=== PATIENT | male | born 1960 | race Caucasian/White ===

== ENCOUNTER 2019-11-03 14:52 | Inpatient (IN) | payer MEDICARE, OTHER ==
[~2019-11-03] VITALS: Ht 172.7 cm; Wt 101.2 kg
--- NOTE | 2019-11-03 15:22 | NUR ---
PT AMBULATORY TO ER BED 14 C/O GENERALIZED WEAKNESS, DIFFUSE ABDOMIAL PAIN W/ NAUSEA AND VOMITING BLOOD AND NOTED BLOOD IN STOOL. PT DENIES ANY ALCOHOL INTAKE. GOWNED AND PLACED ON MONITOR. VSS. AWAITING MD MARTÍNEZ.
--- NOTE | 2019-11-03 15:45 | NUR ---
DR MARTINEZ AT BEDSIDE FOR EVAL.
[2019-11-03] MEDS ORDERED: METOCLOPRAMIDE HCL 10 MG/2 ML VIAL IV ONE (16:00)
[2019-11-03] MEDS ORDERED: PANTOPRAZOLE 80 MG in IV NS 0.9% 500 ML IV ONE (16:00)
[2019-11-03] MEDS ORDERED: PANTOPRAZOLE 80 MG in IV NS 0.9% 100 ML IV ONE (16:00)
[2019-11-03] MEDS ORDERED: IV NS 0.9% 1,000 ML BAG IV ONE (16:00)
[2019-11-03] MEDS ORDERED: METOCLOPRAMIDE HCL 10 MG/2 ML VIAL ONE (16:07)
--- NOTE | 2019-11-03 16:20 | NUR ---
IV LINE STARTED BLOOD DRAWN AND SENT TO LAB.
[2019-11-03 16:29] LABS: BASOPHILS # (AUTO) 0.1 /CMM (0.0-0.2); BASOPHILS % (AUTO) 0.5 % (0.0-2.0); EOSINOPHILS % (AUTO) 0.3 % (0.0-6.0); HEMATOCRIT 25 % (39-51); HEMOGLOBIN 8.2 g/dL (13.5-17.5); LYMPHOCYTES # (AUTO) 1.5 /CMM (0.8-4.8); LYMPHOCYTES % (AUTO) 10.5 % (20.0-44.0); MEAN CORPUSCULAR HGB CONC 33 g/dl (31.0-36.0); MEAN CORPUSCULAR VOLUME 101 fL (80-96); MONOCYTES % (AUTO) 7.5 % (2.0-12.0); NEUTROPHILS # (AUTO) 11.3 /CMM (1.8-8.9); NEUTROPHILS % (AUTO) 81.2 % (43.0-81.0); PLATELET COUNT (AUTO) 230 /CMM (150-450); RED BLOOD CELL COUNT(AUTO) 2.46 MIL/uL (4.5-6.0); WHITE BLOOD COUNT (AUTO) 13.9 K/uL (4.3-11.0)
[2019-11-03] MEDS ORDERED: PANT40TA2 PO (16:32)
[2019-11-03] MEDS ORDERED: TIOT18CA3 IH (16:32)
[2019-11-03] MEDS ORDERED: IPRA4AER INH (16:32)
[2019-11-03] MEDS ORDERED: CHOL400C8 PO (16:32)
[2019-11-03] MEDS ORDERED: VARE1TAB PO (16:32)
[2019-11-03] MEDS ORDERED: TRIA15CR3 TP (16:32)
[2019-11-03] MEDS ORDERED: HYDR50TA3 PO (16:32)
[2019-11-03] MEDS ORDERED: RISP0.2515 PO (16:32)
[2019-11-03] MEDS ORDERED: GUAI600T53 PO (16:32)
[2019-11-03] MEDS ORDERED: ALBU18HF2 IH (16:32)
[2019-11-03] MEDS ORDERED: LEVA15HF4 IH (16:32)
[2019-11-03] MEDS ORDERED: LISI-603 PO (16:32)
[2019-11-03] MEDS ORDERED: FLUT16SP (16:32)
[2019-11-03] MEDS ORDERED: PRAV40TA3 PO (16:32)
[2019-11-03] MEDS ORDERED: AMLO10TA4 PO (16:32)
[2019-11-03] MEDS ORDERED: ACET-2605 PO (16:32)
[2019-11-03] MEDS ORDERED: CALC500T13 PO (16:32)
[2019-11-03 16:53] LABS: CALCIUM, SERUM 8.4 mg/dL (8.5-10.1); CREATININE 1.3 mg/dL (0.6-1.3)
[2019-11-03] MEDS ORDERED: IOHEXOL-300 100 ML VIAL IV ONE (16:57)
[2019-11-03] MEDS ORDERED: IV NS 0.9% 250 ML IV ONE (16:57)
[2019-11-03] MEDS ORDERED: CT SWABBABLE VALVE TRANS SET 1 EA INFUS.SET MC ONE (16:57)
[2019-11-03 17:08] LABS: ALBUMIN 2.7 g/dL (3.4-5.0); BILIRUBIN,DIRECT 0.6 mg/dL (0.0-0.2); BILIRUBIN,TOTAL 1.3 mg/dL (0.2-1.0); TOTAL PROTEIN, SERUM 6.6 g/dL (6.4-8.2)
[2019-11-03] MEDS ORDERED: MAG HYDROX/AL HYDROX/SIMETH 30 ML UDC PO PRN (21:30)
[2019-11-03] MEDS ORDERED: ZOLPIDEM TARTRATE 5 MG TABLET PO PRN (21:30)
[2019-11-03] MEDS ORDERED: ACETAMINOPHEN 325 MG TABLET PO PRN (21:30)
[2019-11-03] MEDS ORDERED: ONDANSETRON HCL/PF 4 MG/2 ML VIAL IVP PRN (21:30)
[2019-11-03] MEDS ORDERED: Z GUARD REMEDY 2 OZ OINT TP PRN (21:30)
[2019-11-03] MEDS ORDERED: MAGNESIUM HYDROXIDE 30 ML UDC PO PRN (21:30)
--- NOTE | 2019-11-03 21:58 | NUR ---
CALLED IN REPORT TO MONICA ARGUETA
[2019-11-03] MEDS ORDERED: LEVALBUTEROL TARTRATE IH PRN (22:30)
--- NOTE | 2019-11-03 22:30 | NUR ---
PT TAKEN TO ROOM 306-2
[2019-11-03] MEDS: IV NS 0.9% 1,000 ML IV PRN (22:37)
--- NOTE | 2019-11-03 22:40 | NUR ---
CONVENTIONAL MACHINISTREAL ESTATE INVESTMENT ANALYST NOTES PATIENT RECEIVED FROM ER ACCOMPANIED BY ER STAFF. PATIENT A/O X 4, STABLE ON RA WITH BREATHING EVEN AND UNLABORED, NO SOB NOTED. NO SIGNS OF ACUTE DISTRESS. NO COMPLAINTS OF PAIN OR DISCOMFORT AT THE MOMENT. VSS TAKEN. ABLE TO AMBULATE ON OWN, STABLE. TELE MONITORS PLACED ON PT SHOWING SINUS TACHY. IV LOCATED ON L FA #18. PATIENT ORIENTED TO ROOM AND STAFF. ALL BELONGINGS ACCOUNTED FOR. HOME MEDICATIONS COLLECTED. SAFETY PRECAUTIONS IN PLACE WITH BED IN LOWEST POSITION, CALL LIGHT WITHIN REACH, BREAKS ON, SIDE RAILS UP. WILL CONTINUE TO MONITOR THROUGHOUT THE SHIFT.
[2019-11-03 23:00] VITALS: BP 132/67
--- NOTE | 2019-11-03 23:30 | NUR ---
PAINT ROLLER COVERMAKER NOTES PATIENT SEEN BY MANAGER SERVICE DESK RICHARDSON. PATIENT NPO, BUT ALLOWED ICE CHIPS PER MANAGER SERVICE DESK.
[2019-11-04] VITALS (11 sets, daily range): BP systolic 98–132; BP diastolic 47–67
[2019-11-04] MEDS ORDERED: ZOSYN IVPB 4.5 G in IV D5W 50ml IV ONE ×2 (01:00→06:00)
[2019-11-04] MEDS ORDERED: PIPERACILLIN /TAZOBACTAM 2.25 G VIAL IV ONE (05:01)
[2019-11-04] MEDS ORDERED: PIPERACILLIN /TAZOBACTAM 4.5 G in IV D5W 50 ML IV SCH (06:00)
--- NOTE | 2019-11-04 06:42 | NUR ---
COOK MESS OPENING NOTES PATIENT CURRENTLY RESTING IN BED A/O X 4. STABLE ON RA WITH BREATHING EVEN AND UNLABORED, NO SOB NOTED. NO SIGNS OF ACUTE DISTRESS. NO COMPLAINTS OF PAIN OR DISCOMFORT AT THE MOMENT. TELE MONITOR READING ST AT 101. PATIENT REMAINED NPO THROUGHOUT THE NIGHT, EXCEPT FOR ICE CHIPS. IV LOCATED ON L FA #18 RUNNING NS @75 ML/HR. SAFETY PRECAUTIONS IN PLACE WITH BED IN LOWEST POSITION, CALL LIGHT WITHIN REACH, BREAKS ON, SIDE RAILS UP. ALL NEEDS ATTENDED TO, PATIENT KEPT CLEAN AND DRY. WILL ENDORSE TO ONCOMING SHIFT ABOUT VINCE.
--- NOTE | 2019-11-04 08:00 | NUR ---
FLIGHT SOFTWARE TEST ENGINEER OPENING NOTES PATIENT IN BED A/O X 4. STABLE ON RA WITH BREATHING EVEN AND UNLABORED, NO SOB NOTED. NO SIGNS OF ACUTE DISTRESS. NO COMPLAINTS OF PAIN OR DISCOMFORT AT THE MOMENT. TELE MONITOR READING SR AT 99. PATIENT REMAINED NPO THROUGHOUT THE NIGHT, EXCEPT FOR ICE CHIPS. IV LOCATED ON L FA #18 RUNNING NS @75 ML/HR. SAFETY PRECAUTIONS IN PLACE WITH BED IN LOWEST POSITION, CALL LIGHT WITHIN REACH, BREAKS ON, SIDE RAILS UP. NEEDS ATTENDED TO, PATIENT KEPT CLEAN AND DRY.AMBULATES ALONG THE HALLWAY WITH STEADY GAIT.WITH BRP.PT HASN'T MADE BM.FOR STOOL OB TO COLLECT.
[2019-11-04 08:41] LABS: ALBUMIN 2.5 g/dL (3.4-5.0); CALCIUM, SERUM 7.9 mg/dL (8.5-10.1); CREATININE 1.2 mg/dL (0.6-1.3); MAGNESIUM 1.9 mg/dL (1.8-2.4); POTASSIUM 3.6 mmol/L (3.5-5.1)
[2019-11-04] MEDS: AMLODIPINE BESYLATE 10 MG TABLET PO SCH (08:55)
[2019-11-04] MEDS: PANTOPRAZOLE 40 MG VIAL IV SCH (08:55)
[2019-11-04] MEDS: HYDROCHLOROTHIAZIDE 25 MG TABLET PO SCH (08:55)
[2019-11-04] MEDS: LISINOPRIL (20MG) 20 MG TABLET PO SCH (08:56)
[2019-11-04] MEDS: CHOLECALCIFEROL (VITAMIN D 3) 400 UNIT TABLET PO SCH (08:56)
[2019-11-04] MEDS: risperiDONE 0.25 MG TABLET PO SCH ×2 (08:56→16:52)
[2019-11-04] MEDS ORDERED: HYDROCHLOROTHIAZIDE 50 MG TABLET PO SCH (09:00)
[2019-11-04] MEDS ORDERED: Medication Not On Formulary EA (Ipratropium/Albuterol Sulfate (Combivent Respimat 20-100 INH SCH (09:00)
[2019-11-04 09:53] LABS: BASOPHILS % (AUTO) 0.4 % (0.0-2.0); EOSINOPHILS % (AUTO) 1.7 % (0.0-6.0); LYMPHOCYTES % (AUTO) 16.9 % (20.0-44.0); MEAN CORPUSCULAR HGB CONC 33 g/dl (31.0-36.0); MEAN CORPUSCULAR VOLUME 100 fL (80-96); MONOCYTES # (AUTO) 1.3 /CMM (0.1-1.30); MONOCYTES % (AUTO) 10.5 % (2.0-12.0); NEUTROPHILS # (AUTO) 8.6 /CMM (1.8-8.9); NEUTROPHILS % (AUTO) 70.5 % (43.0-81.0); PLATELET COUNT (AUTO) 121 /CMM (150-450); WHITE BLOOD COUNT (AUTO) 12.1 K/uL (4.3-11.0)
[2019-11-04 09:55] LABS: RED BLOOD CELL COUNT(AUTO) 1.88 MIL/uL (4.5-6.0)
[2019-11-04 10:01] LABS: HEMOGLOBIN 6.3 g/dL (13.5-17.5)
[2019-11-04 10:02] LABS: HEMATOCRIT 19 % (39-51)
[2019-11-04 10:27] LABS: BAND % (MANUAL) 1 % (0.0-5.0); LYMPHOCYTES % (MANUAL) 21 % (16-48); MONOCYTES % (MANUAL) 6 % (0-11.0); NEUTROPHILS % (MANUAL) 72 (42-76)
--- NOTE | 2019-11-04 12:11 | NUR ---
STARTED INFUSING FIRST UNIT PRBC WITH STABLE V/S.AFEBRILE AND WILL MONITOR FOR ANY ADVERSE REACTIONS.
--- NOTE | 2019-11-04 12:11 | NUR ---
PT IS FOR STAT BLOOD TRANSFUSION OF 2 UNITS PRBC. HGB HCT IS 6.3/. HELD ZOSYN IV ATB DUE AT 12NN.NOTIFIED PHARMACY.
--- NOTE | 2019-11-04 12:27 | NUR ---
INFUSING FIRST UNIT OF PRBC WITH STABLE V/S AND PT DENIES ANY DISTRESS/DISCOMFORT.WILL CONTINUE TO MONITOR FOR ANY ADVERSE REACTIONS.
[2019-11-04] MEDS ORDERED: Sodium Phosphate 15 MMOL in IV NS 0.9% 245 ML IV SCH (13:00)
--- NOTE | 2019-11-04 14:09 | NUR ---
NOTIFIED DR CERNA THAT PT CAN'T PROVIDE HIS HOME MED CHANTIX AND PT SMOKES 1-7 STICKS A DAY AND SOMETIMES NOT AT ALL PER PT.NOTIFIED DR CERNA WHO ORDERED NICOTINE 14 MG PATCH TD INSTEAD.
[2019-11-04] MEDS: NICOTINE PATCH (14MG) 14 MG PATCH.TD24 TD SCH (17:43)
--- NOTE | 2019-11-04 18:45 | NUR ---
completed TRANSFUSING 2ND UNIT OF PRBC WITH STABLE V/S.WILL [id number] TO MONITOR FOR ANY ADVERSE REACTIONS.NO A/R NOTED.
--- NOTE | 2019-11-04 19:05 | NUR ---
RN medsurg opening notes Received Pt from morning nurse. Pt is resting in bed comfortably. Pt is alert and orientedX4. Pt just had 2 units PRBC transfusion. Respiration is normal in room air. No S/S of distress noted. IV sites at LFA# 18 is clean, intact, and patent. Pt status is NPO. Safety precautions is maintained. Bed at low position, brakes locked, side rails upX2 and call light is within reach. Will continue to monitor.
--- NOTE | 2019-11-04 19:12 | NUR ---
RN medsursydnee notes Spoke with Gerardo, pharmacy that blood transfusion is completed. Gerardo stated to infuse zosyn that is schedule at 2000 and sodium phospate IV after zosyn. Morning nurse is aware. Will continue to monitor.
[2019-11-04] MEDS: PIPERACILLIN /TAZOBACTAM 3.375 G in IV D5W 100 ML IV SCH (19:28)
[2019-11-04] MEDS: ATORVASTATIN 10 MG TABLET PO SCH (22:00)
[2019-11-05] MEDS: IV NS 0.9% 1,000 ML IV PRN (03:12)
[2019-11-05] MEDS: PIPERACILLIN /TAZOBACTAM 3.375 G in IV D5W 100 ML IV SCH ×3 (03:55→19:48)
--- NOTE | 2019-11-05 06:50 | NUR ---
RN medsurg closing notes Pt is sleeping in bed comfortably. Pt is alert and orientedX4. Respiration is normal in room air. No S/S of distress noted. IV sites at LFA# 18 is clean, intact, and infusing well NS@ 75ml/hr. Pt is in stable condition. Routine meds were given as ordered. Pt status still NPO. Kept Pt clean, dry and comfortable. Safety precautions is maintained. Bed at low position, brakes locked, side rails upX2 and call light is within reach. Will endorse to morning nurse for VINCE.
[2019-11-05 07:07] LABS: BASOPHILS % (AUTO) 0.4 % (0.0-2.0); HEMATOCRIT 24 % (39-51); HEMOGLOBIN 8.2 g/dL (13.5-17.5); LYMPHOCYTES # (AUTO) 1.9 /CMM (0.8-4.8); LYMPHOCYTES % (AUTO) 21.6 % (20.0-44.0); MEAN CORPUSCULAR HGB CONC 35 g/dl (31.0-36.0); MEAN CORPUSCULAR VOLUME 99 fL (80-96); MONOCYTES # (AUTO) 0.9 /CMM (0.1-1.30); MONOCYTES % (AUTO) 10.7 % (2.0-12.0); NEUTROPHILS # (AUTO) 5.5 /CMM (1.8-8.9); NEUTROPHILS % (AUTO) 63.3 % (43.0-81.0); PLATELET COUNT (AUTO) 108 /CMM (150-450); RED BLOOD CELL COUNT(AUTO) 2.42 MIL/uL (4.5-6.0); WHITE BLOOD COUNT (AUTO) 8.7 K/uL (4.3-11.0)
--- NOTE | 2019-11-05 07:30 | NUR ---
MS/RN Opening note Patient received from night clerk. A/O X4, vital signs stable, denies any pain or discomfort at this time. IV fluids infusing at 75ml/hr, no signs of any infiltration seen. Safety measures in place, call light within reach, will continue to monitor and ensure safety.
[2019-11-05 07:37] LABS: CALCIUM, SERUM 7.7 mg/dL (8.5-10.1); CREATININE 1.1 mg/dL (0.6-1.3); MAGNESIUM 1.9 mg/dL (1.8-2.4); PHOSPHORUS 3.3 mg/dL (2.5-4.9); POTASSIUM 3.8 mmol/L (3.5-5.1)
[2019-11-05 08:00] VITALS: BP 123/64
[2019-11-05] MEDS: PANTOPRAZOLE 40 MG VIAL IV SCH (08:19)
[2019-11-05] MEDS: NICOTINE PATCH (14MG) 14 MG PATCH.TD24 TD SCH (08:19)
[2019-11-05] MEDS: LISINOPRIL (20MG) 20 MG TABLET PO SCH (08:20)
[2019-11-05] MEDS: AMLODIPINE BESYLATE 10 MG TABLET PO SCH (08:20)
[2019-11-05] MEDS: risperiDONE 0.25 MG TABLET PO SCH ×2 (08:20→16:26)
[2019-11-05] MEDS: CHOLECALCIFEROL (VITAMIN D 3) 400 UNIT TABLET PO SCH (08:20)
[2019-11-05] MEDS: HYDROCHLOROTHIAZIDE 25 MG TABLET PO SCH (08:20)
--- NOTE | 2019-11-05 10:00 | NUR ---
MS/RN Labs Morning labs reviewed: -H&H 8.08/29 -Plts 108
--- NOTE | 2019-11-05 12:00 | NUR ---
MS/RN IVAB IVAB hung as ordered, no reaction noted.
--- NOTE | 2019-11-05 15:45 | NUR ---
MS/RN S/B Gerardo Lopez Seen by Gerardo Lopez - start diet, some concerns clot on the gastric ulcer will be displaced if started on soft diet.
[2019-11-05 16:00] VITALS: BP 130/64
--- NOTE | 2019-11-05 17:22 | NUR ---
MS/RN Diet Tolerating clear liquids, no nausea or vomiting. Will advance diet to full liquids for breakfast tomorrow.
--- NOTE | 2019-11-05 18:10 | NUR ---
MS/RN End note Patient remains in stable condition, no signs of any active bleeding. H&H stable, tolerating clear liquid diet. Will endorse to shift leader.
--- NOTE | 2019-11-05 19:19 | NUR ---
MS RN NOTES PATIENT RECEIVED IN BED RESTING COMFORTABLY. ALERT AND ORIENTED X 4. ON ROOM AIR, NO SIGNS OF SOB, RESPIRATORY DISTRESS AT THIS TIME, WITH EVEN NON-LABORED BREATHING. PATIENT IV ACCESS INTACT AND PATENT. SKIN WARM AND DRY TO TOUCH. SAFETY PRECAUTIONS IN PLACE WITH BED LOCKED, BED IN THE LOWEST POSITION, BILATERAL SIDE RAILS UP, AND CALL LIGHT WITHIN EASY REACH OF THE PATIENT. WILL CONTINUE TO MONITOR PATIENT.
[2019-11-05] MEDS: ALBUTEROL FS 2.5 MG/0.5 ML VIAL.NEB NEB SCH (19:30)
[2019-11-05] MEDS: IPRATROPIUM NEB FS 0.5 MG/2.5 ML AMPUL.NEB IH SCH (19:30)
[2019-11-05 20:00] VITALS: BP 124/62
[2019-11-05] MEDS: ATORVASTATIN 10 MG TABLET PO SCH (21:52)
[2019-11-05] MEDS: ALBUTEROL FS 2.5 MG/3 ML VIAL.NEB NEB PRN (23:55)
[2019-11-06] MEDS: IPRATROPIUM NEB FS 0.5 MG/2.5 ML AMPUL.NEB IH SCH ×4 (01:55→20:05)
[2019-11-06] MEDS: ALBUTEROL FS 2.5 MG/3 ML VIAL.NEB NEB PRN ×2 (01:55→01:58)
[2019-11-06] MEDS: ALBUTEROL FS 2.5 MG/0.5 ML VIAL.NEB NEB SCH ×4 (01:59→20:05)
[2019-11-06] MEDS: PIPERACILLIN /TAZOBACTAM 3.375 G in IV D5W 100 ML IV SCH ×3 (03:35→19:50)
--- NOTE | 2019-11-06 06:13 | NUR ---
MS RN NOTES PATIENT IN BED SLEEP AT THIS TIME. EASILY AWAKEN BY NAME AND LIGHT TOUCH. PATIENT ON ROOM AIR. NO SIGNS OF SOB OR RESPIRATORY DISTRESS, WITH EVEN NON-LABORED BREATHING. DENIES ANY PAIN OR DISCOMFORT AT THIS TIME. PATIENT DENIES NAUSEA. IV ACCESS INTACT AND PATENT. SKIN KEPT CLEAN AND DRY. MET ALL OF PATIENT'S NEEDS. SAFETY PRECAUTIONS IN PLACE WITH BED IN THE LOWEST POSITION, BILATERAL SIDE RAILS UP, BED LOCKED, AND CALL LIGHT WITHIN EASY REACH OF PATIENT. WILL ENDORSE PLAN OF CARE TO UPCOMING DAYSHIFT NURSE.
[2019-11-06 06:32] LABS: BASOPHILS % (AUTO) 0.6 % (0.0-2.0); EOSINOPHILS % (AUTO) 4.9 % (0.0-6.0); HEMATOCRIT 23 % (39-51); HEMOGLOBIN 7.9 g/dL (13.5-17.5); LYMPHOCYTES # (AUTO) 1.5 /CMM (0.8-4.8); LYMPHOCYTES % (AUTO) 22.5 % (20.0-44.0); MEAN CORPUSCULAR HGB CONC 34 g/dl (31.0-36.0); MEAN CORPUSCULAR VOLUME 100 fL (80-96); MONOCYTES # (AUTO) 0.8 /CMM (0.1-1.30); MONOCYTES % (AUTO) 12.2 % (2.0-12.0); NEUTROPHILS # (AUTO) 4.1 /CMM (1.8-8.9); NEUTROPHILS % (AUTO) 59.8 % (43.0-81.0); PLATELET COUNT (AUTO) 107 /CMM (150-450); RED BLOOD CELL COUNT(AUTO) 2.33 MIL/uL (4.5-6.0); WHITE BLOOD COUNT (AUTO) 6.8 K/uL (4.3-11.0)
[2019-11-06 06:50] LABS: CALCIUM, SERUM 7.5 mg/dL (8.5-10.1); CREATININE 1.1 mg/dL (0.6-1.3); MAGNESIUM 1.8 mg/dL (1.8-2.4); PHOSPHORUS 3.8 mg/dL (2.5-4.9); POTASSIUM 3.6 mmol/L (3.5-5.1)
--- NOTE | 2019-11-06 07:20 | NUR ---
MS RN OPENING NOTES RECEIVED PT IN BED, AWAKE, A/O X4. PT TOLERATING RA, WITH NO CUTE RESPIRATORY DISTRESS NOTED. PT DENIES ANY PAIN OR DISCOMFORT AT THIS TIME. BUT PT VERBALIZED ABOUT BEING DISCHARGED TODAY BECAUSE HE FEELS A LOT BETTER, RN TO FOLLOW UP WITH HOSPITALIST. IVF NS AT 75ML/HR TO LEFT HAND G18, INTACT AND FLUID INFUSING WELL. PT KEPT COMFORTABLE AT THIS TIME. CALL LIGHT KEPT WITHIN REACH. PT'S BED IN LOWEST, LOCKED POSITION WITH SRX2. WILL CONTINUE PLAN OF CARE.
--- NOTE | 2019-11-06 07:40 | NUR ---
MS RN NOTES RECEIVED CALL FROM DR. NICOLE AND ORDERED TO PREPARE PT FOR EGD AT 10. MD AWARE PT WAS ON FULL LIQUID DIET AT THIS TIME AND ADVISED JUST TO TELL PT NOT TO TAKE ANYTHING FROM THIS TIME AND KEEP NPO UNTIL HE COMES TO DO EGD. RN TO INFORM PT.
--- NOTE | 2019-11-06 07:52 | NUR ---
MS RN NOTES PT INFORMED WITH DR. NICOLE'S PLAN. PT WILL COMPLY WITH NPO AT THIS TIME UNTIL HE TALKS TO THE MD. PT NOT PREFERS TO SIGN ANY CONSENTS AT THIS TIME. HE WANTS TO TALK WITH THE DOCTOR FIRST BEFORE SIGNING. WILL CONTINUE TO MONITOR.
[2019-11-06 08:00] VITALS: BP_SYST 105; BP_SYST 127; BP_DIAS 71
[2019-11-06] MEDS: PANTOPRAZOLE 40 MG VIAL IV SCH (08:29)
[2019-11-06] MEDS: HYDROCHLOROTHIAZIDE 25 MG TABLET PO SCH (09:00)
[2019-11-06] MEDS: risperiDONE 0.25 MG TABLET PO SCH ×2 (09:00→16:58)
[2019-11-06] MEDS: AMLODIPINE BESYLATE 10 MG TABLET PO SCH (09:00)
[2019-11-06] MEDS: CHOLECALCIFEROL (VITAMIN D 3) 400 UNIT TABLET PO SCH (09:00)
[2019-11-06] MEDS: LISINOPRIL (20MG) 20 MG TABLET PO SCH (09:00)
[2019-11-06] MEDS ORDERED: ANESTHESIA TRAY IN PYXIS 1 EA TRAY MC ONE (10:08)
--- NOTE | 2019-11-06 10:28 | NUR ---
MS RN NOTES PT WHEELED DOWN TO OR WITH 2 NURSES VIA BED. PT AWAKE, STABLE VITALS. CONSENTS ENDORSED.
[2019-11-06] MEDS ORDERED: FENTANYL PF 100MCG/2ML AMPUL ONE (10:55)
[2019-11-06] MEDS ORDERED: OCTREOTIDE 1,250 MCG in IV NS 0.9% 247.5 ML IV PRN (11:00)
[2019-11-06] MEDS ORDERED: CEFTRIAXONE 1 G VIAL IM SCH (11:00)
--- NOTE | 2019-11-06 11:17 | NUR ---
MS RN NOTES PT JUST CAME BACK FROM OR VIA BED. PT A/O X4, AWARE WHAT MD DID AND PROBLEM AND NEW ORDERS. VS STABLE AND RECORDED. WILL CONTINUE PLAN OF CARE.
[2019-11-06 11:20] VITALS: BP 130/67
[2019-11-06] MEDS: NICOTINE PATCH (14MG) 14 MG PATCH.TD24 TD SCH (11:26)
[2019-11-06] MEDS: SUCRALFATE 1 G/10 ML UDC GT SCH ×3 (11:27→21:28)
--- NOTE | 2019-11-06 11:50 | NUR ---
MS RN NOTES PER PT REFUSED TO HAVE A SECOND PIV INSERTED EARLIER TODAY. AND TO GIVE ANTIBIOTICS ZOSYN FOR 4 HOURS AND IV CEFTRIAXONE FIRST. RN EXPLAINED AND EDUCATED PURPOSE OF MEDICATIONS, INSIST TO REFUSE. RN TO OFFER GAIN IN A BIT.
[2019-11-06] MEDS: HYDROCODONE/APAP 5/325MG 1 EACH TABLET PO PRN ×2 (12:28→23:06)
--- NOTE | 2019-11-06 12:37 | NUR ---
MS RN NOTES PT REPORTED PAIN OF 7/10 ON HIS S/P EGD/ESOPHAGUS AREA. NORCO 5/325 PRN GIVEN ORDERED. PT ADDED HE WANTED TO TALK TO THE SURGEOUN DUE TO THE PAIN HE WAS HAVING AND PT NOW DENIES THAT HE DID NOT KNOW WHAT MD DO TO HIM DURING SURGERY. PT IS UPSET. RN PAGED DR. NICOLE AND AWAITING FOR CALLBACK.
--- NOTE | 2019-11-06 13:43 | NUR ---
PATIENT REFUSED TX. NO SOB NOTED.RN AWARE (SP02 97% HR 87 RR18)
[2019-11-06] MEDS ORDERED: HYDROMORPHONE 1 MG/1 ML DISP.SYRIN IV PRN (14:30)
--- NOTE | 2019-11-06 14:30 | NUR ---
MS RN NOTES SEEN AND EVALUATED BY DNP/TS. ORDERED DILAUDID 0.5MG PRN Q4 PRN. TS ORDERED TO GIVE ONE SOON THE MEDICINE BECOMES AVAILABLE. WILL CONTINUE TO MONITOR.
[2019-11-06] MEDS: CEFTRIAXONE 1 G in IV D5W 50 ML IV SCH (15:38)
[2019-11-06 16:00] VITALS: BP_SYST 105; BP_SYST 124; BP_DIAS 61; BP_DIAS 71
--- NOTE | 2019-11-06 16:30 | NUR ---
MS RN NOTES OCTREOTIDE IV JUST ADMINISTERED. PER PT REFUSED TO HAVE A SECOND PIV INSERTED EARLIER TODAY. AND TO GIVE ANTIBIOTICS ZOSYN FOR 4 HOURS AND IV CEFTRIAXONE FIRST. RN EXPLAINED AND EDUCATED PURPOSE OF MEDICATIONS. NOW AGREED TO HAVE TWO PIVS. WILL CONTINUE TO MONITOR.
--- NOTE | 2019-11-06 16:45 | NUR ---
MS RN NOTES OCTREOTIDE IV STARTED AT 25MCG/HR, 5ML/HR. INFUSING WELL TO RFA G22, WITH NO INFILTRATIONS NOTED.
--- NOTE | 2019-11-06 18:37 | NUR ---
MS RN CLOSING NOTES PT REMAINS IN BED, AWAKE, A/O X4. PT TOLERATING RA, WITH NO CUTE RESPIRATORY DISTRESS NOTED. PT DENIES ANY PAIN OR DISCOMFORT AT THIS TIME. IVF NS AT 75ML/HR TO LFA G20, INTACT AND FLUID INFUSING WELL. IV OCTREOTIDE AT 50MCG/HR; 10ML/HR TO RFA G20, INTACT AND FLUID INFUSING WELL. PT KEPT COMFORTABLE AT THIS TIME. CALL LIGHT KEPT WITHIN REACH. ALL NEEDS AND CARE ATTENDED AND PROVIDED. PT'S BED IN LOWEST, LOCKED POSITION WITH SRX2. WILL ENDORSE TO INCOMING NIGHT NURSE FOR VINCE.
--- NOTE | 2019-11-06 19:23 | NUR ---
MS RN NOTES PATIENT RECEIVED IN BED, ALERT AND ORIENTED X 4. PATIENT ON ROOM AIR, WITH NO COMPLAINTS OF SOB, NO SIGNS OF RESPIRATORY DISTRESS, AND WITH EVEN NON-LABORED BREATHING. PATIENT IV ACCESS INTACT AND PATENT, INFUSING 50mcg/hr of OCTREOTIDE. PATIENT SKIN WARM AND DRY. DENIES PAIN OR DISCOMFORT AT THIS TIME AND PROVIDED COMFORT MEASURES. SAFETY PRECAUTIONS IN PLACE WITH BED IN THE LOWEST POSITION, BILATERAL SIDE RAILS UP, BED LOCKED, AND CALL LIGHT WITHIN EASY REACH OF THE PATIENT. WILL CONTINUE TO MONITOR PATIENT.
[2019-11-06 20:00] VITALS: BP_SYST 125; BP_SYST 171; BP_DIAS 58; BP_DIAS 98
[2019-11-06] MEDS: ATORVASTATIN 10 MG TABLET PO SCH (21:28)
--- NOTE | 2019-11-06 23:06 | NUR ---
MS RN NOTES PATIENT REPORTED 6/10 PAIN, STATING THROBBING PAIN IN ESOPHAGUS AREA DUE TO S/P EGD. ADMINISTERED PRN NORCO 5/325 ORDERED. WILL REASSESS PATIENT AND WILL CONTINUE TO MONITOR.
[2019-11-07] MEDS: ALBUTEROL FS 2.5 MG/0.5 ML VIAL.NEB NEB SCH ×3 (01:45→14:16)
[2019-11-07] MEDS: IPRATROPIUM NEB FS 0.5 MG/2.5 ML AMPUL.NEB IH SCH ×3 (01:45→14:16)
[2019-11-07] MEDS: IV NS 0.9% 1,000 ML IV PRN (02:20)
[2019-11-07] MEDS: PIPERACILLIN /TAZOBACTAM 3.375 G in IV D5W 100 ML IV SCH ×2 (03:41→12:09)
--- NOTE | 2019-11-07 06:17 | NUR ---
MS RN NOTES PATIENT IN BED RESTING COMFORTABLY. EASILY AWAKEN BY NAME. ON ROOM AIR WITH NO SIGNS OF RESPIRATORY DISTRESS AT THIS TIME. PATIENT SKIN KEPT CLEAN AND DRY. IV ACCESS INTACT AND PATENT, INFUSING NS AT 75mL ON LEFT FOREARM, AND OCTREOTIDE 50mcg/hr ON RIGHT FOREARM. PROVIDED COMFORT MEASURES TO PATIENT AND MET ALL OF PATIENT'S NEEDS. DENIES ANY PAIN OR DISCOMFORT AT THIS TIME. SAFETY PRECAUTIONS IN PLACE WITH BED LOCKED, BED IN THE LOWEST POSITION, BILATERAL SIDE RAILS UP AND CALL LIGHT WITHIN EASY REACH OF THE PATIENT. WILL ENDORSE PLAN OF CARE TO UPCOMING DAYSHIFT NURSE.
[2019-11-07 06:20] LABS: BASOPHILS % (AUTO) 0.6 % (0.0-2.0); EOSINOPHILS % (AUTO) 3.6 % (0.0-6.0); HEMATOCRIT 23 % (39-51); HEMOGLOBIN 7.9 g/dL (13.5-17.5); LYMPHOCYTES # (AUTO) 1.4 /CMM (0.8-4.8); LYMPHOCYTES % (AUTO) 25.7 % (20.0-44.0); MEAN CORPUSCULAR HGB CONC 34 g/dl (31.0-36.0); MEAN CORPUSCULAR VOLUME 99 fL (80-96); MONOCYTES # (AUTO) 0.7 /CMM (0.1-1.30); MONOCYTES % (AUTO) 13.7 % (2.0-12.0); NEUTROPHILS % (AUTO) 56.4 % (43.0-81.0); PLATELET COUNT (AUTO) 102 /CMM (150-450); RED BLOOD CELL COUNT(AUTO) 2.34 MIL/uL (4.5-6.0); WHITE BLOOD COUNT (AUTO) 5.3 K/uL (4.3-11.0)
[2019-11-07 06:38] LABS: CALCIUM, SERUM 7.8 mg/dL (8.5-10.1); CREATININE 1.1 mg/dL (0.6-1.3); MAGNESIUM 1.8 mg/dL (1.8-2.4); PHOSPHORUS 3.8 mg/dL (2.5-4.9)
--- NOTE | 2019-11-07 07:30 | NUR ---
MS/RN Opening note Patient received from shift supervisor rn. A/O X4, vital signs stable, stating that current pain level is 1/10. All questions and concerns addressed/answered. Call light within reach, will continue to monitor and ensure safety.
[2019-11-07 08:00] VITALS: BP 135/69
[2019-11-07] MEDS: PANTOPRAZOLE 40 MG VIAL IV SCH (08:09)
[2019-11-07] MEDS: SUCRALFATE 1 G/10 ML UDC GT SCH ×2 (08:09→12:09)
[2019-11-07] MEDS: NICOTINE PATCH (14MG) 14 MG PATCH.TD24 TD SCH (08:10)
[2019-11-07] MEDS: AMLODIPINE BESYLATE 10 MG TABLET PO SCH (08:10)
[2019-11-07] MEDS: CHOLECALCIFEROL (VITAMIN D 3) 400 UNIT TABLET PO SCH (08:10)
[2019-11-07] MEDS: HYDROCHLOROTHIAZIDE 25 MG TABLET PO SCH (08:12)
[2019-11-07] MEDS: risperiDONE 0.25 MG TABLET PO SCH (08:12)
[2019-11-07] MEDS: LISINOPRIL (20MG) 20 MG TABLET PO SCH (08:12)
--- NOTE | 2019-11-07 09:30 | NUR ---
MS/RN Exit care Exit care prepared for possible discharge later today.
[2019-11-07] MEDS: CEFTRIAXONE 1 G in IV D5W 50 ML IV SCH (12:36)
--- NOTE | 2019-11-07 12:50 | NUR ---
MS/RN IVAB IVAB administered as ordered.
--- NOTE | 2019-11-07 15:25 | NUR ---
MS/RN S/B Dr Enriquez Seen by MD - patient to be discharged today, needs to follow up with primary care and GI doctors.
[2019-11-07] MEDS ORDERED: SUCR1ORA6 GT (15:50)
[2019-11-07 16:00] VITALS: BP 138/77
--- NOTE | 2019-11-07 16:11 | NUR ---
MS/net developer Patient discharged to home in stable condition. Heplock x2 removed, pressure dressing applied, name bands removed. Provided with copies of medical record and disc containing all imaging from this admission. Exit care signed, educated patient about the importance of following up with GI doctor within one week for further testing as to the cause of bleeding. Patient informed to observe urine and stool for any signs of blood andany blood in vomit and report to GI doctor. Patient stated understanding of all of the above. Prescription for carafate sent electronically to pharmacy at [facility]. All personal belongings with patient and signed for on belongings list. Escorted to main lobby in stable condition.
== END 2019-11-07 16:10 | disposition home or self-care (01) | DRG 432 ==
LOC: ER 15:06 → TELE 22:10 → MED 11-04 17:01
PROVIDERS: ADMIT Nurse Practitioner Acute Care; ATTEND Student in an Organized Health Care Education/Training Program
PROC: 30233N1 Transfusion of Nonautologous Red Blood Cells into Peripheral Vein, Percutaneous Approach (ICD-10-PCS; 2019-11-03)
PROC: 06L38CZ Occlusion of Esophageal Vein with Extraluminal Device, Via Natural or Artificial Opening Endoscopic (ICD-10-PCS; principal; 2019-11-06)
PROC: 0DB68ZX Excision of Stomach, Via Natural or Artificial Opening Endoscopic, Diagnostic (ICD-10-PCS; 2019-11-06)
DX: K70.30 Alcoholic cirrhosis of liver without ascites (principal); N17.0 Acute kidney failure with tubular necrosis; I85.11 Secondary esophageal varices with bleeding; D62 Acute posthemorrhagic anemia; E44.1 Mild protein-calorie malnutrition; K76.6 Portal hypertension; D68.9 Coagulation defect, unspecified; I12.9 Hypertensive chronic kidney disease with stage 1 through stage 4 chronic kidney disease, or unspecified chronic kidney disease; N18.9 Chronic kidney disease, unspecified; D72.829 Elevated white blood cell count, unspecified; K29.70 Gastritis, unspecified, without bleeding; K21.0 Gastro-esophageal reflux disease with esophagitis; F17.210 Nicotine dependence, cigarettes, uncomplicated; K57.30 Diverticulosis of large intestine without perforation or abscess without bleeding; J44.9 Chronic obstructive pulmonary disease, unspecified; M48.061 Spinal stenosis, lumbar region without neurogenic claudication; F31.9 Bipolar disorder, unspecified; G89.29 Other chronic pain; Z83.3 Family history of diabetes mellitus; E78.5 Hyperlipidemia, unspecified; E83.51 Hypocalcemia; Z87.19 Personal history of other diseases of the digestive system; Z79.899 Other long term (current) drug therapy; Z79.51 Long term (current) use of inhaled steroids; R74.0 Nonspecific elevation of levels of transaminase and lactic acid dehydrogenase [LDH]; E80.6 Other disorders of bilirubin metabolism; F10.21 Alcohol dependence, in remission; R73.9 Hyperglycemia, unspecified; T39.395A Adverse effect of other nonsteroidal anti-inflammatory drugs [NSAID], initial encounter; Y92.9 Unspecified place or not applicable
CPT/HCPCS: 36415; 80048-TC; 80053-TC; 80076-TC; 83690-TC; 83735-TC; 84100-TC; 85025-TC; 85730-TC; 86850-TC; 86921-TC; 87081-TC; 88305-TC; A9563; C9113; G0378; J0696; J1170; J2354; J2405; J2543; J2704; J2765; J3010; J7030; J7040; J7050; J7060; P9016-BL; Q9967

== ENCOUNTER 2020-02-06 19:04 | Inpatient (IN) | payer MEDICARE, OTHER ==
[~2020-02-06] VITALS: Ht 172.7 cm; Wt 99.8 kg
[~2020-02-06 19:04] MED LIST: ACET-2605 PO; ALBU18HF2 IH; AMLO10TA4 PO; CALC500T13 PO; CHOL400C8 PO; FLUT16SP; GUAI600T53 PO; HYDR50TA3 PO; IPRA4AER INH; LEVA15HF4 IH; LISI-603 PO; PANT40TA2 PO; PRAV40TA3 PO; RISP0.2515 PO; SUCR1ORA6 GT; TIOT18CA3 IH; TRIA15CR3 TP; VARE1TAB PO
--- NOTE | 2020-02-06 19:30 | NUR ---
BIBS FROM HOME TO ER BED 6. AAOX4. NOT IN RESP DISTRESS, BREATHING EVEN AND UNLABORED. AMBULATORY. CAME IN FOR VOMMITING FOR BLOOD FOR THE PAST 3 DAYS. PT IS REPORTING ASSOCIATED WEAKNESS. PT IS NOTED WITH DISTENDED ABDOMEN. YADIRA VALENCIA AT THE BEDSIDE FOR EVAL. ORDERS RECEIVED NOTED AND CARRIED OUT.
[2020-02-06] MEDS ORDERED: IV NS 0.9% 1,000 ML BAG IV ONE ×3 (20:00→23:00)
[2020-02-06 20:25] LABS: BASOPHILS # (AUTO) 0.1 /CMM (0.0-0.2); BASOPHILS % (AUTO) 0.7 % (0.0-2.0); EOSINOPHILS % (AUTO) 0.9 % (0.0-6.0); HEMATOCRIT 30 % (39-51); HEMOGLOBIN 9.3 g/dL (13.5-17.5); LYMPHOCYTES # (AUTO) 0.9 /CMM (0.8-4.8); LYMPHOCYTES % (AUTO) 10.3 % (20.0-44.0); MEAN CORPUSCULAR HGB CONC 31 g/dl (31.0-36.0); MEAN CORPUSCULAR VOLUME 82 fL (80-96); MONOCYTES # (AUTO) 0.8 /CMM (0.1-1.30); MONOCYTES % (AUTO) 8.9 % (2.0-12.0); NEUTROPHILS # (AUTO) 6.9 /CMM (1.8-8.9); NEUTROPHILS % (AUTO) 79.2 % (43.0-81.0); PLATELET COUNT (AUTO) 149 /CMM (150-450); RED BLOOD CELL COUNT(AUTO) 3.68 MIL/uL (4.5-6.0); WHITE BLOOD COUNT (AUTO) 8.8 K/uL (4.3-11.0)
[2020-02-06] MEDS ORDERED: PANTOPRAZOLE 40 MG VIAL IV ONE (20:30)
[2020-02-06] MEDS ORDERED: IOHEXOL-300 100 ML VIAL IV ONE (20:36)
[2020-02-06] MEDS ORDERED: IV NS 0.9% 250 ML IV ONE (20:36)
[2020-02-06] MEDS ORDERED: PANTOPRAZOLE 40 MG VIAL ONE (20:43)
[2020-02-06 20:47] LABS: CALCIUM, SERUM 9.7 mg/dL (8.5-10.1); CREATININE 1.2 mg/dL (0.6-1.3); POTASSIUM 3.8 mmol/L (3.5-5.1)
[2020-02-06 20:53] LABS: ALBUMIN 3.3 g/dL (3.4-5.0); BILIRUBIN,DIRECT 0.6 mg/dL (0.0-0.2); BILIRUBIN,TOTAL 1.5 mg/dL (0.2-1.0); TOTAL PROTEIN, SERUM 7.7 g/dL (6.4-8.2)
[2020-02-06 22:34] LABS: BASOPHILS # (AUTO) 0.1 /CMM (0.0-0.2); BASOPHILS % (AUTO) 0.6 % (0.0-2.0); EOSINOPHILS % (AUTO) 0.4 % (0.0-6.0); HEMATOCRIT 31 % (39-51); HEMOGLOBIN 9.5 g/dL (13.5-17.5); LYMPHOCYTES # (AUTO) 1.2 /CMM (0.8-4.8); LYMPHOCYTES % (AUTO) 12.5 % (20.0-44.0); MEAN CORPUSCULAR HGB CONC 31 g/dl (31.0-36.0); MEAN CORPUSCULAR VOLUME 82 fL (80-96); MONOCYTES # (AUTO) 0.8 /CMM (0.1-1.30); MONOCYTES % (AUTO) 8.2 % (2.0-12.0); NEUTROPHILS # (AUTO) 7.2 /CMM (1.8-8.9); NEUTROPHILS % (AUTO) 78.3 % (43.0-81.0); PLATELET COUNT (AUTO) 139 /CMM (150-450); RED BLOOD CELL COUNT(AUTO) 3.77 MIL/uL (4.5-6.0); WHITE BLOOD COUNT (AUTO) 9.2 K/uL (4.3-11.0)
--- NOTE | 2020-02-06 22:34 | NUR ---
PT HAD AN EPISODE OF COFFEGROUND EMESIS, 80CC. YADIRA VALENCIA MADE AWARE
--- NOTE | 2020-02-06 22:56 | NUR ---
PANEL PAGED PER ANNIE MAY.
--- NOTE | 2020-02-06 23:14 | NUR ---
BED ASSIGNMENT 306-1
--- NOTE | 2020-02-06 23:18 | NUR ---
FOLLOWED UP WITH LAB REGARDING COVID ANTIGEN. SPECIMEN RECEIVED WILL, WILL PROCESS
[2020-02-07] MEDS ORDERED: ACETAMINOPHEN 650 MG/SUPP.RECT RC PRN
[2020-02-07] MEDS ORDERED: ONDANSETRON HCL/PF 4 MG/2 ML VIAL IVP PRN
[2020-02-07] MEDS ORDERED: MORPHINE SULFATE INJ 2 MG/ML DISP.SYRIN IV PRN
--- NOTE | 2020-02-07 00:23 | NUR ---
covid result: negative
[2020-02-07 00:30] VITALS: BP 142/69
--- NOTE | 2020-02-07 00:30 | NUR ---
OPERATOR SUPPLY ADMITTING NOTES PATIENT ARRIVED TO UNIT APPROXIMATELY 0030, ACCOMPANIED BY 2 ER STAFF; PATIENT A/OX4, BREATHING EVEN AND UNLABORED; TOLERATING ROOM AIR WELL; NO SOB NOTED; PATIENT IS AMBULATORY AND ABLE TO MAKE NEEDS KNOWN; MEDICAL HX OBTAINED; SKIN ASSESSMENT DONE; BELONGINGS CHECKED; TELE MONITOR ATTACHED READS S.TACHY 120S BPM; PER ER, PATIENT TACHY WELL; PATIENT REQUESTED 2LPM VIA NC PRN; SPOKE WITH DR. WHIPPLE AND PER MICK PARRISH FOR PRN; L AC #18 INFUSING D5 1/2 NS @ 75ML/HR; TOLERATING IVF WELL; NO S/S OF REDNESS OR INFILTRATION NOTED; DVT PUMPS APPLIED; PATIENT ORIENTED TO UNIT AND STAFF; SAFETY PRECAUTIONS IMPLEMENTED; BED LOCKED IN LOW POSITION; SIDE RAILSX2; CALL LIGHT WITHIN REACH; WILL CONT PLAN OF CARE AND CONT TO MONITOR PATIENT;
--- NOTE | 2020-02-07 00:39 | NUR ---
REPORT GIVEN TO KENDALL ANDERSON FOR VINCE.
[2020-02-07 00:45] VITALS: BP 142/69
--- NOTE | 2020-02-07 00:51 | NUR ---
PT TRANSPORTED TO UNIT ON [place] WITH EMT AND RN AT BEDSIDE W/ ACLS PROTOCOL, NAD NOTED. PT AMBULATED FROM GURNEY TO BED ON STEADY GAIT.
[2020-02-07] MEDS: IV D5/0.45 NACL 1,000 ML IV PRN ×2 (00:56→22:31)
--- NOTE | 2020-02-07 01:38 | NUR ---
SHACTOR NOTES PATIENT DOES NOT WANT DVT PUMPS APPLIED OF NOW; PATIENT REPORTED IT IS MAKING HIM FEEL HOT AND WOULD LIKE THEM TAKEN OFF; DVT PUMPS REMOVED; PATIENT UNDERSTANDS IMPORTANCE AND WILL TRY AGAIN IN AM; WILL CONT TO MONITOR
--- NOTE | 2020-02-07 02:53 | NUR ---
CLAIM INVESTIGATOR NOTES PATIENT COMPLAINING OF 8/10 ABDOMINAL PAIN; VITALS STABLE; PATIENT A/OX4; TELE MONITOR READS S.TACHY 120S; PER PATIENT, HE FEELS HE IS UNDER A LOT OF STRESS AND BELIEVES IT IS PART OF THE REASON HIS HR HAS BEEN IN THE UPPER 100S - 130S; PATIENT REQUESTING PAIN MEDICATION; MORPHINE ADMINISTERED PER MD ORDER; WILL CONT TO MONITOR
[2020-02-07 04:00] VITALS: BP 120/59
--- NOTE | 2020-02-07 06:28 | NUR ---
ARMATURE CONNECTOR CLOSING NOTES PATIENT RESTING IN BED COMFORTABLY; A/OX4; BREATHING EVEN AND UNLABORED; TOLERATING ROOM AIR WELL; PATIENT AWARE HE IS ABLE TO USE 2LPM VIA NC IF NEEDED; TELE MONITOR ATTACHED READS S.TACHY 115BPM; L AC #18 INFUSING D51/2NS @ 75ML/HR; PATIENT TOLERATING IVF WELL; PATIENT ABLE TO MAKE NEEDS KNOWN; ALL NEEDS RENDERED; SAFETY PRECAUTIONS IMPLEMENTED; BED LOCKED IN LOW POSITION; SIDE RAILSX2; CALL LIGHT WITHIN REACH; WILL ENDORSE VINCE TO ONCOMING SHIFT
[2020-02-07 08:31] LABS: BASOPHILS # (AUTO) 0.1 /CMM (0.0-0.2); BASOPHILS % (AUTO) 0.7 % (0.0-2.0); HEMATOCRIT 29 % (39-51); HEMOGLOBIN 9.2 g/dL (13.5-17.5); LYMPHOCYTES # (AUTO) 1.6 /CMM (0.8-4.8); LYMPHOCYTES % (AUTO) 16.9 % (20.0-44.0); MEAN CORPUSCULAR HGB CONC 32 g/dl (31.0-36.0); MEAN CORPUSCULAR VOLUME 81 fL (80-96); MONOCYTES # (AUTO) 0.9 /CMM (0.1-1.30); MONOCYTES % (AUTO) 10.2 % (2.0-12.0); NEUTROPHILS # (AUTO) 6.6 /CMM (1.8-8.9); NEUTROPHILS % (AUTO) 71.2 % (43.0-81.0); PLATELET COUNT (AUTO) 147 /CMM (150-450); RED BLOOD CELL COUNT(AUTO) 3.56 MIL/uL (4.5-6.0); WHITE BLOOD COUNT (AUTO) 9.3 K/uL (4.3-11.0)
[2020-02-07 08:39] LABS: ALBUMIN 3.4 g/dL (3.4-5.0); BILIRUBIN,TOTAL 1.3 mg/dL (0.2-1.0); CALCIUM, SERUM 9.4 mg/dL (8.5-10.1); MAGNESIUM 1.7 mg/dL (1.8-2.4); PHOSPHORUS 2.9 mg/dL (2.5-4.9); POTASSIUM 3.6 mmol/L (3.5-5.1); TOTAL PROTEIN, SERUM 7.7 g/dL (6.4-8.2)
[2020-02-07 08:42] LABS: THYROID STIMULATING HORMONE 4.157 uIU/mL (0.358-3.74)
[2020-02-07] MEDS: NICOTINE PATCH (7MG) 7 MG PATCH.TD24 TD SCH (09:02)
[2020-02-07] MEDS: PANTOPRAZOLE 40 MG VIAL IV SCH ×2 (09:03→21:23)
--- NOTE | 2020-02-07 11:40 | NUR ---
HEAD OF STOCK NOTES CALL RECEIVED FROM DR. REED WITH ORDERS TO PLACE PATIENT NPO AFTER MIDNIGHT FOR POSSIBLE EGD. ALL MEDICATION ORDERS CARRIED OUT. WILL CONTINUE TO MONITOR. PATIENT WITH NO VOMITING OR ANY SYMPTOMS OF BLEEDING.
[2020-02-07] MEDS: Magnesium 1GM/D5W 100ML PREMIX 100 ML IV SCH ×2 (11:46→12:51)
[2020-02-07] MEDS ORDERED: CEFTRIAXONE 1 G VIAL IM SCH (12:00)
[2020-02-07] MEDS ORDERED: LORAZEPAM 1 MG TABLET PO PRN (13:00)
[2020-02-07] MEDS: CEFTRIAXONE 1 G in IV NS 0.9% 50 ML IV SCH (14:26)
[2020-02-07] MEDS: OCTREOTIDE 1,250 MCG in IV NS 0.9% 247.5 ML IV PRN (15:35)
--- NOTE | 2020-02-07 19:21 | NUR ---
MS RN NOTES PATIENT IN BED RESTING NO SOB OR ACUTE DISTRESS NOTED. PATIENT ALERT, ORIENTED X3. NO ACUTE CHANGES NOTED DURING AM SHIFT. WILL ENDORSE TO PM SHIFT.
--- NOTE | 2020-02-07 19:33 | NUR ---
MS RN OPENING NOTES PATIENT RECEIVED RESTING IN BED COMFORTABLY; SITTING IN BED; A/OX4; BREATHING EVEN AND UNLABORED; NO SOB NOTED; TOLERATING ROOM AIR BUT USES 2LPM VIA NC IF NEEDED; L AC #18 INFUSING D5 1/2 NS @ 75ML/HR; TOLERATING IVF WELL; PATIENT CURRENTLY ON SANDOSTATIN DRIP; PER AM SHIFT, PATIENT NPO AFTER MIDNIGHT FOR POSSIBLE EGD PROCEDURE TOMORROW; PATIENT AWARE AND VERBALIZED UNDERSTANDING; CONSENT SIGNED; SAFETY PRECAUTIONS IMPLEMENTED; BED LOCKED IN LOW POSITION; SIDE RAILSX2; CALL LIGHT WITHIN EASY REACH; WILL CONT TO MONITOR
[2020-02-07 20:00] VITALS: BP 132/77
--- NOTE | 2020-02-07 23:00 | NUR ---
MS RN NOTES URINE SAMPLE COLLECTED FOR UA; LAB AWARE; AWAITING RESULTS
[2020-02-08 00:09] LABS: APPEARANCE,URINE CLEAR (CLEAR); BILIRUBIN,URINE NEGATIVE (NEGATIVE); BLOOD, URINE NEGATIVE Ery/uL (NEGATIVE); COLOR,URINE YELLOW (YELLOW); KETONES,URINE NEGATIVE (NEGATIVE); LEUKOCYTE ESTERASE ,URINE NEGATIVE (NEGATIVE); NITRITE, URINE NEGATIVE (NEGATIVE); PROTEIN,URINE NEGATIVE (NEGATIVE); UGLUCOSE NEGATIVE (NEGATIVE); UROBILINOGEN,URINE 0.2 EU/dL (0.2)
[2020-02-08] MEDS: OCTREOTIDE 1,250 MCG in IV NS 0.9% 247.5 ML IV PRN (03:04)
--- NOTE | 2020-02-08 03:10 | NUR ---
MS RN NOTES PER PHARMACY, CHANGE SANDOSTATIN BAG BEFORE IT EXPIRES IN 12 HOURS; BAG STARTED @ 1600; CHANGED BAG 0300; CHARGE NURSE AWARE; WILL CONT TO MONITOR
[2020-02-08 06:39] LABS: BASOPHILS % (AUTO) 0.7 % (0.0-2.0); EOSINOPHILS % (AUTO) 4.2 % (0.0-6.0); HEMATOCRIT 27 % (39-51); HEMOGLOBIN 8.4 g/dL (13.5-17.5); LYMPHOCYTES # (AUTO) 1.3 /CMM (0.8-4.8); LYMPHOCYTES % (AUTO) 20.1 % (20.0-44.0); MEAN CORPUSCULAR HGB CONC 31 g/dl (31.0-36.0); MEAN CORPUSCULAR VOLUME 83 fL (80-96); MONOCYTES # (AUTO) 0.6 /CMM (0.1-1.30); MONOCYTES % (AUTO) 9.9 % (2.0-12.0); NEUTROPHILS # (AUTO) 4.2 /CMM (1.8-8.9); NEUTROPHILS % (AUTO) 65.1 % (43.0-81.0); PLATELET COUNT (AUTO) 115 /CMM (150-450); RED BLOOD CELL COUNT(AUTO) 3.22 MIL/uL (4.5-6.0); WHITE BLOOD COUNT (AUTO) 6.4 K/uL (4.3-11.0)
--- NOTE | 2020-02-08 06:49 | NUR ---
MS RN CLOSING NOTES PATIENT RESTING IN BED COMFORTABLY; A/OX4; BREATHING EVEN AND UNLABORED; NO SOB NOTED; PATIENT TOLERATING ROOM AIR WELL; PATIENT ABLE TO MAKE NEEDS KNOWN; ALL NEEDS RENDERED; PATIENT SCHEDULED FOR EGD PROCEDURE LATER TODAY; NPO STATUS MAINTAINED; SAFETY PRECAUTIONS IMPLEMENTED; BED LOCKED IN LOW POSITION; SIDE RAILSX2; CALL LIGHT WITHIN REACH WILL ENDORSE VINCE TO ONCOMING SHIFT
[2020-02-08 07:02] LABS: CALCIUM, SERUM 8.5 mg/dL (8.5-10.1); CREATININE 1.1 mg/dL (0.6-1.3); PHOSPHORUS 4.1 mg/dL (2.5-4.9)
--- NOTE | 2020-02-08 07:30 | NUR ---
MS RN NOTES RECEIVED PATIENT IN BED, ALERT AND AWAKE ORIENTED X4. HOB ELEVATED. DENIES ANY C/O PAIN NOR DISCOMFORT AT THIS TIME. ON SANDOSTATIN DRIP CAMPBELL WELL. LEFT AC # 18 INFUSING D5 1/2 NS AT 75ML/HR CAMPBELL WELL. REMAIN ON NPO FOR SCHEDULED EGD. NO SOB. DENIES ANY C/O PAIN NOR DISCOMFORT AT THIS TIME. NO S/S OF BLEEDING OBSERVED. BED IN LOWEST POSITION ,LOCKED. BED ALARM ON. CALL LIGHT WITHIN REACH.
[2020-02-08] MEDS: PANTOPRAZOLE 40 MG VIAL IV SCH (08:57)
[2020-02-08] MEDS: NICOTINE PATCH (7MG) 7 MG PATCH.TD24 TD SCH (08:57)
--- NOTE | 2020-02-08 12:01 | NUR ---
MS RN NOTES PATIENT OFF UNIT, WENT TO OR FOR SCHEDULED EGD.
--- NOTE | 2020-02-08 13:25 | NUR ---
MS RN NOTE PATIENT RETURNED TO UNIT, PER REPORT EGD WAS DONE, NO BLEED SEEN, GASTRITIS ONLY. WITH ORDER FOR RESUME ALL PREVIOUS ORDERS AND ADVANCE DIET TOLERATED.
[2020-02-08] MEDS: CEFTRIAXONE 1 G in IV NS 0.9% 50 ML IV SCH (13:39)
[2020-02-08] MEDS ORDERED: ACETAMINOPHEN 325 MG TABLET PO PRN ×2 (14:00)
--- NOTE | 2020-02-08 15:15 | NUR ---
MS RN NOTES ALERT AND AWAKE ORIENTED X4. NO S/S OF RESPIRATORY DISTRESS. S/P EGD WITHOUT S/S OF COMPLICATIONS. PATIENT FOR DISCHARGE. DISCHARGE PACKET, EDUCATION AND INSTRUCTIONS PROVIDED TO PATIENT. PER PATIENT HE ALREADY HAS MEDICATIONS AT HOME AND A SCHEDULED F/U APPT WITH HIS PCP ON THURSDAY. ALL BELONGINGS ACCOUNTED FOR. IV ACCESS REMOVED WITH GAUZE DRESSING IN PLACE. AMBULATORY WITH STEADY GAIT. ATE CLEAR LIQUIDS CAMPBELL WELL. INSTRUCTED AND EDUCATED PATIENT REGARDING ADVANCING DIET. PER PATIENT, HE IS FAMILIAR DUE TO EGD WAS DONE IN THE PAST. PATIENT LEFT IN STABLE CONDITION.
== END 2020-02-08 15:15 | disposition home or self-care (01) | DRG 432 ==
LOC: ER 19:05 → TELE 23:45 → MED 02-07 09:16
PROVIDERS: ADMIT Internal Medicine; ATTEND Nurse Practitioner Acute Care
PROC: 0DJ08ZZ Inspection of Upper Intestinal Tract, Via Natural or Artificial Opening Endoscopic (ICD-10-PCS; principal; 2020-02-08)
DX: K70.30 Alcoholic cirrhosis of liver without ascites (principal); N17.0 Acute kidney failure with tubular necrosis; I85.11 Secondary esophageal varices with bleeding; K76.6 Portal hypertension; F10.188 Alcohol abuse with other alcohol-induced disorder; I12.9 Hypertensive chronic kidney disease with stage 1 through stage 4 chronic kidney disease, or unspecified chronic kidney disease; N18.9 Chronic kidney disease, unspecified; J44.9 Chronic obstructive pulmonary disease, unspecified; D69.6 Thrombocytopenia, unspecified; K29.70 Gastritis, unspecified, without bleeding; K21.0 Gastro-esophageal reflux disease with esophagitis; E86.0 Dehydration; F10.10 Alcohol abuse, uncomplicated; E78.5 Hyperlipidemia, unspecified; F31.9 Bipolar disorder, unspecified; F17.210 Nicotine dependence, cigarettes, uncomplicated; K31.89 Other diseases of stomach and duodenum; K25.9 Gastric ulcer, unspecified as acute or chronic, without hemorrhage or perforation; K44.9 Diaphragmatic hernia without obstruction or gangrene; D50.9 Iron deficiency anemia, unspecified; T39.315A Adverse effect of propionic acid derivatives, initial encounter; Y92.009 Unspecified place in unspecified non-institutional (private) residence as the place of occurrence of the external cause; Y90.9 Presence of alcohol in blood, level not specified; E66.3 Overweight; K22.70 Barrett's esophagus without dysplasia; Z68.33 Body mass index [BMI] 33.0-33.9, adult
CPT/HCPCS: 36415; 71045-TC; 80048-TC; 80053-TC; 80061-TC; 80076-TC; 81000-TC; 83540-TC; 83735-TC; 84100-TC; 84443-TC; 84484-TC; 85025-TC; 85610-TC; 85730-TC; 86850-TC; 87081-TC; 93307-TC; A4216; C9113; G0378; J0696; J2270; J2354; J3475; J3490; J7030; J7050; Q9967

== ENCOUNTER 2020-06-07 12:07 | Inpatient (IN) | payer MEDICARE, OTHER ==
[~2020-06-07] VITALS: Ht 172.7 cm; Wt 99.8 kg
[~2020-06-07 12:07] MED LIST changes: -CHOL400C8 PO; -GUAI600T53 PO
--- NOTE | 2020-06-07 12:20 | NUR ---
WEAKNESS, COFFEE GROUND EMESIS, DIARRHEA X 2 DAYS. PATIENT A/OX4, BREATHING EVEN AND UNLABORED, NO SOB NOTED, NEEDS ATTENDED.
[2020-06-07] MEDS ORDERED: OCTREOTIDE 50 MCG in IV NS 0.9% 50 ML IJ ONE (13:00)
[2020-06-07] MEDS ORDERED: CEFTRIAXONE 1GM BAG (ER ONLY) 50 ML IV ONE ×2 (13:00→13:05)
[2020-06-07] MEDS ORDERED: ONDANSETRON HCL/PF 4 MG/2 ML VIAL IVP ONE (13:00)
[2020-06-07] MEDS ORDERED: PANTOPRAZOLE 40 MG VIAL IV ONE (13:00)
[2020-06-07] MEDS ORDERED: MORPHINE SULFATE INJ 2 MG/ML DISP.SYRIN IV ONE (13:00)
[2020-06-07] MEDS ORDERED: ONDANSETRON HCL/PF 4 MG/2 ML VIAL ONE (13:05)
[2020-06-07] MEDS ORDERED: MORPHINE SULFATE INJ 4 MG/ML DISP.SYRIN ONE (13:05)
[2020-06-07] MEDS ORDERED: PANTOPRAZOLE 40 MG VIAL ONE (13:05)
[2020-06-07 13:24] LABS: CALCIUM, SERUM 8.6 mg/dL (8.5-10.1); CARBON DIOXIDE 21 mmol/L (21-32); CHLORIDE 108 mmol/L (98-107); CREATININE 1.3 mg/dL (0.6-1.3); GLUCOSE 185 mg/dL (74-106); POTASSIUM 4.2 mmol/L (3.5-5.1); SODIUM SERUM 144 mmol/L (136-145); UREA NITROGEN, BLOOD 22 mg/dL (7-18)
--- NOTE | 2020-06-07 13:31 | NUR ---
ACCOMPANIED DR HASTINGS FOR A RECTAL EXAM,TOLERATED WELL
[2020-06-07 13:32] LABS: ALANINE AMINOTRANSFERASE 51 U/L (12-78); ALBUMIN 2.4 g/dL (3.4-5.0); ALKALINE PHOSPHATASE 85 U/L (46-116); ASPARTATE AMINOTRANSFERASE 104 U/L (15-37); BILIRUBIN,DIRECT 1.4 mg/dL (0.0-0.2); BILIRUBIN,TOTAL 2.6 mg/dL (0.2-1.0); LIPASE 216 U/L (73-393); TOTAL PROTEIN, SERUM 6.8 g/dL (6.4-8.2)
[2020-06-07] MEDS ORDERED: IOHEXOL-350 100 ML VIAL IV ONE (13:52)
[2020-06-07] MEDS ORDERED: CT SWABBABLE VALVE TRANS SET 1 EA INFUS.SET MC ONE (13:52)
[2020-06-07] MEDS ORDERED: IV NS 0.9% 250 ML IV ONE (13:53)
[2020-06-07 13:55] LABS: BASOPHILS # (AUTO) 0.1 /CMM (0.0-0.2); BASOPHILS % (AUTO) 0.6 % (0.0-2.0); EOSINOPHILS % (AUTO) 1.2 % (0.0-6.0); HEMATOCRIT 23 % (39-51); LYMPHOCYTES # (AUTO) 1.6 /CMM (0.8-4.8); LYMPHOCYTES % (AUTO) 13.9 % (20.0-44.0); MEAN CORPUSCULAR HGB CONC 29 g/dl (31.0-36.0); MEAN CORPUSCULAR VOLUME 87 fL (80-96); MONOCYTES # (AUTO) 1.1 /CMM (0.1-1.30); NEUTROPHILS # (AUTO) 8.4 /CMM (1.8-8.9); NEUTROPHILS % (AUTO) 74.3 % (43.0-81.0); PLATELET COUNT (AUTO) 159 /CMM (150-450); RED BLOOD CELL COUNT(AUTO) 2.68 MIL/uL (4.5-6.0); WHITE BLOOD COUNT (AUTO) 11.4 K/uL (4.3-11.0)
[2020-06-07 13:59] LABS: HEMOGLOBIN 6.6 g/dL (13.5-17.5)
[2020-06-07] MEDS ORDERED: IV NS 0.9% 1,000 ML IV ONE ×2 (14:00)
--- NOTE | 2020-06-07 14:10 | NUR ---
PATIENT IS VOMITING WITH BLOOD. PATIENT REMAINS TO BE ALERT AND ORIENTED, NO DISTRESS NOTED. NO CHANGE IN LOC.
--- NOTE | 2020-06-07 14:20 | NUR ---
PATIENT CAME BACK FROM CT SCAN. NO DISTRESS NOTED. VITALS STABLE.
[2020-06-07] MEDS ORDERED: IV NS 0.9% 1,000 ML BAG IV ONE (14:30)
[2020-06-07] MEDS ORDERED: Z GUARD REMEDY 2 OZ OINT TP PRN (15:00)
[2020-06-07] MEDS ORDERED: ONDANSETRON HCL/PF 4 MG/2 ML VIAL IVP PRN (15:00)
--- NOTE | 2020-06-07 18:08 | NUR ---
BLOOD TRANSFUSION INITIATED AT 1800. PATIENT TOLERATING WELL. NO DISTRESS NOTED.
--- NOTE | 2020-06-07 20:17 | NUR ---
TELE BED 315-2
[2020-06-07 20:31] LABS: LYMPHOCYTES % (MANUAL) 14 % (16-48); MONOCYTES % (MANUAL) 10 % (0-11.0); NEUTROPHILS % (MANUAL) 76 (42-76)
[2020-06-07] MEDS ORDERED: PANTOPRAZOLE 40 MG VIAL IV SCH (21:00)
[2020-06-07] MEDS ORDERED: NEXIUM 40 MG VIAL IV SCH (21:00)
--- NOTE | 2020-06-07 21:00 | NUR ---
REPORT GIVEN TO ROSALINDA ARGUETA FOR VINCE/ PT TRANSFERED PER ACLS PROTOCOL
--- NOTE | 2020-06-07 21:40 | NUR ---
FACTORY HELPERTOWER HELPER NOTES PATIENT ADMITTED FROM ER IN STABLE CONDITION. A/OX4. STABLE ON RA; NO S/S OF ACUTE RESPIRATORY DISTRESS; BREATHING IS EVEN AND UNLABORED. NO C/O PAIN AT THIS TIME. TELE MONITOR READING NSR. IV PRESENT ON RIGHT AC, SIZE 18, INTACT & PATENT, HEP LOCKED. SKIN DRY AND INTACT. BELONGINGS LIST VERIFIED WITH PATIENT. ADMITTING ORDERS RECEIVED. MRSA SWAB AND MED RECON COMPLETED IN ER. SAFETY MEASURES IN PLACE AND PATIENT'S NEEDS MET. BED LOCKED, HOB ELEVATED, SIDE RAILS X2, CALL LIGHT WITHIN REACH. WILL CONTINUE TO MONITOR.
[2020-06-07 21:45] VITALS: BP 143/82
[2020-06-07] MEDS: PANTOPRAZOLE 40 MG VIAL IV SCH (22:05)
[2020-06-07] MEDS: OCTREOTIDE 1,250 MCG in IV NS 0.9% 247.5 ML IV PRN (22:06)
[2020-06-07] MEDS: MORPHINE SULFATE INJ 2 MG/ML DISP.SYRIN IV PRN (23:02)
[2020-06-07 23:37] LABS: HEMOGLOBIN 6.5 g/dL (13.5-17.5)
[2020-06-08] VITALS (10 sets, daily range): BP systolic 106–145; BP diastolic 55–78
[2020-06-08] MEDS ORDERED: PROP80CA51 PO (01:29)
--- NOTE | 2020-06-08 03:30 | NUR ---
DRIVER EDUCATION INSTRUCTOR NOTES 1 UNIT LRBC TRANSFUSION STARTED AT 60 ML/HR. PATIENT TOLERATING WELL; NO BLOOD TRANSFUSION REACTION NOTED. NO S/S OF ACUTE RESPIRATORY DISTRESS; BREATHING IS EVEN AND UNLABORED. VITAL SIGNS WNL. WILL CONTINUE TO MONITOR.
--- NOTE | 2020-06-08 06:34 | NUR ---
BANDER AND CELLOPHANER MACHINE NOTES BLOOD TRANSFUSION OF 1 UNIT LRBC COMPLETED. NO REACTIONS NOTED DURING ENTIRE TRANSFUSION. VITAL SIGNS WNL. WILL CONTINUE TO MONITOR.
--- NOTE | 2020-06-08 07:52 | NUR ---
SEASONING MIXER CLOSING NOTES PATIENT AWAKE IN BED. A/OX4. STABLE ON RA; NO S/S OF SOB; BREATHING IS EVEN AND UNLABORED. NO C/O PAIN. IV PRESENT ON LEFT FA, SIZE 22, INTACT & PATENT WITH SANDOSTATIN RUNNING 25ML/HR. IV PRESENT ON RIGHT AC, SIZE 18, INTACT & PATENT, HEP LOCKED. SAFETY MEASURES IN PLACE AND PATIENT'S NEEDS MET. BED LOCKED, HOB ELEVATED, SIDE RAILS X2, CALL LIGHT WITHIN REACH. ENDORSED TO DAY SHIFT RN PLAN OF CARE.
--- NOTE | 2020-06-08 08:00 | NUR ---
MS/RN OPENING NOTE RECEIVED PATIENT FROM DOOR INSTALLER NURSE PATIENT A/O X4. PATIENT IS ROOM AIR, TOLERATING WELL. BREATHING EVEN NON LABORED, NO SOB NOTED. RAC #18 AND LFA # 22 INTACT AND PATENT. PATIENT IS NPO. SAFETY MEASURES IN PLACE WILL CONTINUE TO MONITOR AND ENSURE SAFETY.
[2020-06-08] MEDS: PANTOPRAZOLE 40 MG VIAL IV SCH ×2 (08:47→20:59)
[2020-06-08 09:32] LABS: BASOPHILS % (AUTO) 0.8 % (0.0-2.0); EOSINOPHILS % (AUTO) 2.4 % (0.0-6.0); HEMATOCRIT 23 % (39-51); HEMOGLOBIN 7.1 g/dL (13.5-17.5); LYMPHOCYTES # (AUTO) 1.2 /CMM (0.8-4.8); LYMPHOCYTES % (AUTO) 18.4 % (20.0-44.0); MEAN CORPUSCULAR HGB CONC 30 g/dl (31.0-36.0); MEAN CORPUSCULAR VOLUME 86 fL (80-96); MONOCYTES # (AUTO) 0.8 /CMM (0.1-1.30); MONOCYTES % (AUTO) 12.5 % (2.0-12.0); NEUTROPHILS # (AUTO) 4.1 /CMM (1.8-8.9); NEUTROPHILS % (AUTO) 65.9 % (43.0-81.0); PLATELET COUNT (AUTO) 87 /CMM (150-450); RED BLOOD CELL COUNT(AUTO) 2.72 MIL/uL (4.5-6.0); WHITE BLOOD COUNT (AUTO) 6.3 K/uL (4.3-11.0)
[2020-06-08] MEDS: OCTREOTIDE 1,250 MCG in IV NS 0.9% 247.5 ML IV PRN ×2 (09:40→21:22)
[2020-06-08 09:44] LABS: CALCIUM, SERUM 7.6 mg/dL (8.5-10.1); CREATININE 1.1 mg/dL (0.6-1.3); MAGNESIUM 1.6 mg/dL (1.8-2.4); PHOSPHORUS 3.5 mg/dL (2.5-4.9); POTASSIUM 3.9 mmol/L (3.5-5.1)
[2020-06-08 10:53] LABS: EOSINOPHILS % (MANUAL) 6 % (0-4); LYMPHOCYTES % (MANUAL) 15 % (16-48); MONOCYTES % (MANUAL) 4 % (0-11.0); NEUTROPHILS % (MANUAL) 75 (42-76)
[2020-06-08] MEDS: MORPHINE SULFATE INJ 2 MG/ML DISP.SYRIN IV PRN (11:21)
[2020-06-08] MEDS: CEFTRIAXONE 1 G in IV D5W 50 ML IV SCH (12:51)
--- NOTE | 2020-06-08 18:50 | NUR ---
MS/RN CLOSING NOTE PATIENT REMAINS IN STABLE CONDITION. A/O X4 ABLE TO VERBALIZE NEEDS. PATIENT IS ON ROOM AIR, TOLERATING WELL. BREATHING EVEN, NON LABORED, NO SOB NOTED. RAC # 18 AND LFA #22 INTACT AND PATENT, PATIENT IS RECEIVING SANDOSTATIN PER MD ORDER IN LFA. PATIENT WAS CHANGED TO CLEAR LIQUID DIET BUT WILL BE NPO AFTER MIDNIGHT PER ADIS MELO DNP. ALL NEEDS MET THROUGHOUT THE SHIFT. SAFETY MEASURES IN PLACE. WILL ENDORSE TO RECORDINGS LIBRARIAN NURSE.
[2020-06-08 19:31] LABS: BASOPHILS # (AUTO) 0.1 /CMM (0.0-0.2); BASOPHILS % (AUTO) 0.8 % (0.0-2.0); EOSINOPHILS % (AUTO) 4.5 % (0.0-6.0); HEMATOCRIT 23 % (39-51); HEMOGLOBIN 7.2 g/dL (13.5-17.5); LYMPHOCYTES % (AUTO) 16.4 % (20.0-44.0); MEAN CORPUSCULAR HGB CONC 31 g/dl (31.0-36.0); MEAN CORPUSCULAR VOLUME 86 fL (80-96); MONOCYTES # (AUTO) 0.8 /CMM (0.1-1.30); MONOCYTES % (AUTO) 12.4 % (2.0-12.0); NEUTROPHILS # (AUTO) 4.1 /CMM (1.8-8.9); NEUTROPHILS % (AUTO) 65.9 % (43.0-81.0); PLATELET COUNT (AUTO) 89 /CMM (150-450); RED BLOOD CELL COUNT(AUTO) 2.72 MIL/uL (4.5-6.0); WHITE BLOOD COUNT (AUTO) 6.3 K/uL (4.3-11.0)
--- NOTE | 2020-06-08 20:00 | NUR ---
PATIENT COMPLAINED OF HEADACHE, INFORMED DR THORNE.
[2020-06-08 20:25] LABS: EOSINOPHILS % (MANUAL) 7 % (0-4); LYMPHOCYTES % (MANUAL) 13 % (16-48); MONOCYTES % (MANUAL) 10 % (0-11.0); NEUTROPHILS % (MANUAL) 70 (42-76)
[2020-06-08] MEDS: ACETAMINOPHEN 325 MG TABLET PO PRN (20:59)
--- NOTE | 2020-06-08 21:53 | NUR ---
PAGED DR THORNE RE: SANDOSTATIN WAS INFUSED 25ML/HR BY THE PREVIOUS SHIFT RN. HELD THE SANDOSTATIN DRIP AT 2121, CHARGE NURSE TAVIA MADE AWARE. PATIENT IS A/O X4. NO ACTIVE BLEEDING AT THIS TIME. ONLY COMPLAINED OF HEADACHE EARLIER, TYLENOL 650 MG PO GIVEN. PATIENT IS SLEEPING AT THIS TIME, EASILY AROUSABLE. BED ALARM ON. CALL LIGHT WITHIN REACH. BED IN LOWEST AND LOCKED POSITION.
--- NOTE | 2020-06-08 22:02 | NUR ---
RECEIVED A CALL FROM MICK FORTE TO CONTINUE WITH THE SANDOSTATIN DRIP AT 5ML/HR.
--- NOTE | 2020-06-08 22:07 | NUR ---
RESUMED THE SANDOSTATIN DRIP AT 5ML/HOUR.
[2020-06-09] VITALS: BP 142/72
--- NOTE | 2020-06-09 | NUR ---
PATIENT IS NPO, PATIENT AWARE, VERBALIZED UNDERSTANDING.
[2020-06-09 04:00] VITALS: BP 141/80
--- NOTE | 2020-06-09 06:39 | NUR ---
PATIENT SIGNED THE CONSENT FOR EGD AND ATTACHED TO THE CHART. PATIENT IN BED. NO S/S OF DISTRESS NOTED. NO COMPLAIN OF PAIN. CALL LIGHT WITHIN REACH. BED IN LOWEST AND LOCKED POSITION. NO ACTIVE BLEEDING AT THIS TIME.
--- NOTE | 2020-06-09 07:10 | NUR ---
ms rn received on bed, awake,alert,oriented x4,not in any form of distress, respirations even and unlabored,no sob noted, denies pain at this time,will monitor patient.
[2020-06-09 07:29] LABS: CALCIUM, SERUM 7.5 mg/dL (8.5-10.1); POTASSIUM 3.5 mmol/L (3.5-5.1)
[2020-06-09 07:33] LABS: BASOPHILS % (AUTO) 0.8 % (0.0-2.0); EOSINOPHILS % (AUTO) 4.1 % (0.0-6.0); HEMATOCRIT 23 % (39-51); HEMOGLOBIN 7.3 g/dL (13.5-17.5); LYMPHOCYTES % (AUTO) 18.9 % (20.0-44.0); MEAN CORPUSCULAR HGB CONC 31 g/dl (31.0-36.0); MEAN CORPUSCULAR VOLUME 86 fL (80-96); MONOCYTES # (AUTO) 0.6 /CMM (0.1-1.30); MONOCYTES % (AUTO) 11.1 % (2.0-12.0); NEUTROPHILS # (AUTO) 3.4 /CMM (1.8-8.9); NEUTROPHILS % (AUTO) 65.1 % (43.0-81.0); PLATELET COUNT (AUTO) 80 /CMM (150-450); RED BLOOD CELL COUNT(AUTO) 2.72 MIL/uL (4.5-6.0); WHITE BLOOD COUNT (AUTO) 5.2 K/uL (4.3-11.0)
[2020-06-09] MEDS ORDERED: ANESTHESIA TRAY IN PYXIS 1 EA TRAY MC ONE (07:45)
[2020-06-09 08:00] VITALS: BP 147/83
--- NOTE | 2020-06-09 08:30 | NUR ---
ms rn patient on npo,for egd today.
--- NOTE | 2020-06-09 09:00 | NUR ---
ms rn patient went down for procedure.
[2020-06-09] MEDS: PANTOPRAZOLE 40 MG VIAL IV SCH ×2 (09:58→21:11)
[2020-06-09] MEDS: MORPHINE SULFATE INJ 2 MG/ML DISP.SYRIN IV PRN ×2 (10:09→14:20)
[2020-06-09] MEDS: OCTREOTIDE 1,250 MCG in IV NS 0.9% 247.5 ML IV PRN (10:22)
[2020-06-09] MEDS ORDERED: Magnesium 1GM/D5W 100ML PREMIX PIGGYBACK IV ONE (10:30)
[2020-06-09] MEDS ORDERED: MGSO4/D5W 100 ML IV SCH (10:30)
--- NOTE | 2020-06-09 11:30 | NUR ---
ms rn came back from procedure, banding of non active varices was done,all needs attended.
[2020-06-09 12:00] VITALS: BP 149/78
[2020-06-09] MEDS: CEFTRIAXONE 1 G in IV D5W 50 ML IV SCH (14:29)
[2020-06-09 16:00] VITALS: BP 157/84
[2020-06-09] MEDS: ACETAMINOPHEN 325 MG TABLET PO PRN (17:17)
--- NOTE | 2020-06-09 18:00 | NUR ---
ms rn patient on clear liquids now, tolerated well.
--- NOTE | 2020-06-09 19:00 | NUR ---
RN OPENING NOTES Pt awake on bed, resting. No complaints made at this time. On fall and aspiration precautions. Will continue to monitor accordingly.
[2020-06-09 20:00] VITALS: BP 145/71
[2020-06-09] MEDS: PROPRANOLOL HCL 10 MG TABLET PO SCH (21:12)
--- NOTE | 2020-06-09 22:36 | NUR ---
RN OPENING NOTES Pt awake on bed, resting. No complaints made at this time. On fall and aspiration precautions. Will continue to monitor accordingly. Addendum: 06/09/20 at 2236 by JAMES MANNING RN entry for [id number]
[2020-06-10] VITALS: BP 117/56
[2020-06-10 04:00] VITALS: BP 142/70
[2020-06-10 06:14] LABS: BASOPHILS % (AUTO) 0.9 % (0.0-2.0); EOSINOPHILS % (AUTO) 4.4 % (0.0-6.0); HEMATOCRIT 27 % (39-51); HEMOGLOBIN 7.9 g/dL (13.5-17.5); LYMPHOCYTES # (AUTO) 0.9 /CMM (0.8-4.8); LYMPHOCYTES % (AUTO) 16.1 % (20.0-44.0); MEAN CORPUSCULAR HGB CONC 30 g/dl (31.0-36.0); MEAN CORPUSCULAR VOLUME 90 fL (80-96); MONOCYTES # (AUTO) 0.7 /CMM (0.1-1.30); MONOCYTES % (AUTO) 13.3 % (2.0-12.0); NEUTROPHILS # (AUTO) 3.5 /CMM (1.8-8.9); NEUTROPHILS % (AUTO) 65.3 % (43.0-81.0); PLATELET COUNT (AUTO) 95 /CMM (150-450); RED BLOOD CELL COUNT(AUTO) 2.96 MIL/uL (4.5-6.0); WHITE BLOOD COUNT (AUTO) 5.3 K/uL (4.3-11.0)
[2020-06-10 06:23] VITALS: BP 142/70
[2020-06-10 06:35] LABS: CALCIUM, SERUM 7.5 mg/dL (8.5-10.1); POTASSIUM 3.7 mmol/L (3.5-5.1)
--- NOTE | 2020-06-10 06:38 | NUR ---
RN CLOSING NOTES Pt asleep on bed, no distress/discomfort noted. All nursing needs attended, due meds given as ordered. No new unusualities noted. Kept on bed clean, dry and comfortable. On fall and aspiration precautions. Endorsed.
--- NOTE | 2020-06-10 07:59 | NUR ---
MS/RN OPENING NOTE RECEIVED PATIENT FROM RECOVERY COACH NURSE PATIENT A/O X4 ABLE TO VERBALIZE NEEDS. PATIENT ON ROOM AIR , TOLERATING WELL. BREATHING EVEN, NON LABORED, NO SOB NOTED. LFA #22 AND RAC #18 INTACT AND PATENT. SAFETY MEASURES IN PLACE, BED LOCK AND IN LOWEST POSITION, CALL LIGHT WITHIN REACH. WILL CONTINUE TO MONITOR AND ENSURE SAFETY.
[2020-06-10 08:00] VITALS: BP 142/88
[2020-06-10 08:43] VITALS: BP 142/88
[2020-06-10] MEDS: PROPRANOLOL HCL 10 MG TABLET PO SCH (08:43)
[2020-06-10] MEDS: PANTOPRAZOLE 40 MG VIAL IV SCH (08:43)
[2020-06-10 09:04] LABS: EOSINOPHILS % (MANUAL) 8 % (0-4); LYMPHOCYTES % (MANUAL) 26 % (16-48); MONOCYTES % (MANUAL) 13 % (0-11.0); NEUTROPHILS % (MANUAL) 53 (42-76)
--- NOTE | 2020-06-10 11:40 | NUR ---
MS/RN DISCHARGED PATIENT TO HOME IN STABLE CONDITION, ESCORTED TO LOBBY BY ELLYN. ALL PERSONAL BELONGINGS RETURNED TO PATIENT AND SIGNED OFF BELONGING LIST. HEPLOCK REMOVED, DRESSING APPLIED, NAME BAND REMOVED. PRESCRIPTION FOR NEW MEDICATIONS GIVEN TO PATIENT. EACH MEDICATION EXPLAINED USE AND POSSIBLE SIDE EFFECT. PATIENT STATED UNDERSTANDING. INFORMED PATIENT TO FILL PRESCRIPTION SOON POSSIBLE. PROVIDED WITH EXIT CARE SIGNED BY PATIENT. COPY PROVIDED. ALL QUESTIONS, CONCERNS ADDRESSED AND ANSWERED.
== END 2020-06-10 11:49 | disposition home or self-care (01) | DRG 432 ==
LOC: ER 12:07 → TELE 20:30
PROVIDERS: ADMIT Nurse Practitioner Acute Care; ATTEND Nurse Practitioner Acute Care
PROC: 30233N1 Transfusion of Nonautologous Red Blood Cells into Peripheral Vein, Percutaneous Approach (ICD-10-PCS; principal; 2020-06-07)
PROC: 06L38CZ Occlusion of Esophageal Vein with Extraluminal Device, Via Natural or Artificial Opening Endoscopic (ICD-10-PCS; 2020-06-09)
DX: K74.60 Unspecified cirrhosis of liver (principal); I85.11 Secondary esophageal varices with bleeding; K76.6 Portal hypertension; D62 Acute posthemorrhagic anemia; R18.8 Other ascites; K29.70 Gastritis, unspecified, without bleeding; E78.5 Hyperlipidemia, unspecified; J44.9 Chronic obstructive pulmonary disease, unspecified; E66.9 Obesity, unspecified; Z68.32 Body mass index [BMI] 32.0-32.9, adult; F17.210 Nicotine dependence, cigarettes, uncomplicated; F41.9 Anxiety disorder, unspecified; K21.9 Gastro-esophageal reflux disease without esophagitis; K40.20 Bilateral inguinal hernia, without obstruction or gangrene, not specified as recurrent; N20.0 Calculus of kidney; K31.89 Other diseases of stomach and duodenum; K57.90 Diverticulosis of intestine, part unspecified, without perforation or abscess without bleeding; Z71.3 Dietary counseling and surveillance; F10.10 Alcohol abuse, uncomplicated; Z71.6 Tobacco abuse counseling; I10 Essential (primary) hypertension
CPT/HCPCS: 36415; 80048-TC; 80061-TC; 80076-TC; 83605-TC; 83690-TC; 83735-TC; 84100-TC; 84484-TC; 85025-TC; 85027-TC; 85730-TC; 86850-TC; 87040-TC; 87081-TC; C9113; C9803; G0378; J0696; J2270; J2354; J2405; J2704; J3475; J3490; J7030; J7040; J7050; J7060; P9016-BL; Q9967

== ENCOUNTER 2020-07-03 21:15 | Inpatient (IN) | payer MEDICARE, OTHER ==
[~2020-07-03] VITALS: Ht 172.7 cm; Wt 84.4 kg
[~2020-07-03 21:15] MED LIST changes: +PROP80CA51 PO
--- NOTE | 2020-07-03 21:33 | NUR ---
RAHUL FROM HOME FOR C.O SOB X 2 DAYS. NO COUGH, NEVER TESTED + FOR COVID. SATTING 98% ON NON REBREATHER MASK. PLACED ON A MONITOR
--- NOTE | 2020-07-03 21:45 | NUR ---
BLOOD WAS DRAWN AND SENT TO LAB
[2020-07-03] MEDS ORDERED: methylPREDNISolone SOD SUCC 125 MG/2ML VIAL ONE (21:48)
--- NOTE | 2020-07-03 21:54 | NUR ---
X RAY AT BED SIDE
[2020-07-03] MEDS ORDERED: IPRATROPIUM NEB FS 0.5 MG/2.5 ML AMPUL.NEB NEB ONE (22:00)
[2020-07-03] MEDS ORDERED: methylPREDNISolone SOD SUCC 125 MG/2ML VIAL IV ONE (22:00)
[2020-07-03] MEDS ORDERED: ALBUTEROL FS 2.5 MG/3 ML VIAL.NEB NEB ONE (22:00)
[2020-07-03 22:41] LABS: HEMOGLOBIN 9.5 g/dL (13.5-17.5); MONOCYTES # (AUTO) 1.2 /CMM (0.1-1.30)
[2020-07-03 22:45] LABS: LYMPHOCYTES # (AUTO) 0.9 /CMM (0.8-4.8); NEUTROPHILS % (AUTO) 83.9 % (43.0-81.0)
[2020-07-03 22:49] LABS: BASOPHILS # (AUTO) 0.1 /CMM (0.0-0.2); BASOPHILS % (AUTO) 0.4 % (0.0-2.0); EOSINOPHILS % (AUTO) 0.7 % (0.0-6.0); HEMATOCRIT 35 % (39-51); LYMPHOCYTES % (AUTO) 6.2 % (20.0-44.0); MEAN CORPUSCULAR HGB CONC 28 g/dl (31.0-36.0); MEAN CORPUSCULAR VOLUME 92 fL (80-96); MONOCYTES % (AUTO) 8.8 % (2.0-12.0); NEUTROPHILS # (AUTO) 11.8 /CMM (1.8-8.9); PLATELET COUNT (AUTO) 72 /CMM (150-450); RED BLOOD CELL COUNT(AUTO) 3.77 MIL/uL (4.5-6.0)
[2020-07-03 22:55] LABS: CARBON DIOXIDE 23 mmol/L (21-32); CHLORIDE 104 mmol/L (98-107); CREATININE 1.3 mg/dL (0.6-1.3); GLUCOSE 124 mg/dL (74-106); POTASSIUM 4.2 mmol/L (3.5-5.1); SODIUM SERUM 139 mmol/L (136-145); UREA NITROGEN, BLOOD 25 mg/dL (7-18)
[2020-07-03] MEDS ORDERED: PIPERACILLIN /TAZOBACTAM 3.375 G in IV D5W 50 ML IV ONE (23:00)
[2020-07-03] MEDS ORDERED: VANCOMYCIN 1 GM in IV D5W 250 ML IV ONE (23:00)
--- NOTE | 2020-07-03 23:03 | NUR ---
LAB CALLED REGARDING NEGATIVE COVID RESULT.
[2020-07-03 23:10] LABS: ALANINE AMINOTRANSFERASE 29 U/L (12-78); ALBUMIN 1.9 g/dL (3.4-5.0); ALKALINE PHOSPHATASE 131 U/L (46-116); ASPARTATE AMINOTRANSFERASE 61 U/L (15-37); B-TYPE NATRIURETIC PEPTIDE 84 PG/ML (0-125); BILIRUBIN,DIRECT 2.7 mg/dL (0.0-0.2); BILIRUBIN,TOTAL 4.3 mg/dL (0.2-1.0); TOTAL PROTEIN, SERUM 7.7 g/dL (6.4-8.2)
[2020-07-03] MEDS ORDERED: PIPERACILLIN /TAZOBACTAM 3.375 G VIAL IV ONE (23:23)
[2020-07-03] MEDS ORDERED: VANCOMYCIN 1 GM VIAL ONE (23:23)
[2020-07-03 23:44] LABS: LYMPHOCYTES % (MANUAL) 2 % (16-48); MONOCYTES % (MANUAL) 3 % (0-11.0); NEUTROPHILS % (MANUAL) 95 (42-76)
--- NOTE | 2020-07-03 23:50 | NUR ---
LOPEZ YI ALUMINA PLANT SUPERVISOR AT BED SIDE
[2020-07-04] MEDS ORDERED: ONDANSETRON HCL/PF 4 MG/2 ML VIAL IVP PRN (00:30)
[2020-07-04] MEDS ORDERED: ACETAMINOPHEN 325 MG TABLET PO PRN (00:30)
[2020-07-04] MEDS ORDERED: ZOLPIDEM TARTRATE 5 MG TABLET PO PRN (00:30)
[2020-07-04] MEDS ORDERED: Z GUARD REMEDY 2 OZ OINT TP PRN (00:30)
[2020-07-04] MEDS ORDERED: CALCIUM CARBONATE 500 MG TAB.CHEW PO PRN (00:30)
--- NOTE | 2020-07-04 00:57 | NUR ---
PT IS PLACED IN THE PRIVATE ISOLATION ROOM AND CALLED RT FOR BREATHING TX
--- NOTE | 2020-07-04 00:59 | NUR ---
CALLED AFTER HOUR PHARMACY TO VERIFY THE ORDERS
[2020-07-04] MEDS ORDERED: ALBUTEROL FS 2.5 MG/3 ML VIAL.NEB ONE (01:10)
[2020-07-04] MEDS ORDERED: IPRATROPIUM NEB FS 0.5 MG/2.5 ML AMPUL.NEB ONE ×3 (01:11→13:23)
[2020-07-04] MEDS ORDERED: IPRATROPIUM NEB FS 0.5 MG/2.5 ML AMPUL.NEB NEB PRN (01:30)
[2020-07-04] MEDS ORDERED: ALBUTEROL FS 2.5 MG/3 ML VIAL.NEB INH PRN (01:30)
[2020-07-04] MEDS ORDERED: risperiDONE 1 MG TABLET ONE ×3 (01:51→17:48)
[2020-07-04] MEDS ORDERED: SUCRALFATE 1 G/10 ML UDC ONE ×5 (01:51→22:32)
[2020-07-04] MEDS: risperiDONE 0.25 MG TABLET PO SCH ×3 (02:03→17:49)
[2020-07-04] MEDS: SUCRALFATE 1 G/10 ML UDC GT SCH ×5 (02:03→22:36)
--- NOTE | 2020-07-04 05:19 | NUR ---
NIKKIID SWABBED, SENT TO LAB.
[2020-07-04] MEDS ORDERED: methylPREDNISolone SOD SUCC 40 MG/ML VIAL IV ONE (06:00)
[2020-07-04] MEDS ORDERED: PIPERACILLIN /TAZOBACTAM 3.375 G in IV D5W 50 ML IV ONE (06:00)
--- NOTE | 2020-07-04 06:26 | NUR ---
called merry for zosyn iv atb
[2020-07-04] MEDS ORDERED: methylPREDNISolone SOD SUCC 40 MG/ML VIAL ONE (06:40)
[2020-07-04] MEDS ORDERED: PANTOPRAZOLE 40 MG TABLET.DR PO SCH (07:30)
--- NOTE | 2020-07-04 07:30 | NUR ---
REPORT GIVEN TO AM SHIFT KENDALL KELLER.
[2020-07-04] MEDS ORDERED: IPRATROPIUM NEB FS 0.5 MG/2.5 ML AMPUL.NEB HHN SCH (08:46)
[2020-07-04] MEDS ORDERED: PANTOPRAZOLE 40 MG TABLET.DR PO ONE (08:59)
[2020-07-04] MEDS ORDERED: methylPREDNISolone SOD SUCC 125 MG/2ML VIAL ONE (08:59)
[2020-07-04] MEDS ORDERED: TIOTROPIUM BROMIDE 6 CAP/BOX CAP.W.DEV IH SCH (09:00)
[2020-07-04] MEDS ORDERED: HYDROCHLOROTHIAZIDE 50 MG TABLET PO SCH (09:00)
--- NOTE | 2020-07-04 09:27 | NUR ---
DR ORTIZ AT BEDSIDE. RELAYED TO THAT PT IS NOTED SATTING @ 77% DESPITE 15LPM NRB UPON EXERTION. PT IS TO BE PLACED ON HI FLOW O2 AND WILL BE PLACED ON PRONE POSITION
[2020-07-04] MEDS: LISINOPRIL (20MG) 20 MG TABLET PO SCH (09:46)
[2020-07-04] MEDS: FLUTICASONE PROPIONATE 16 GM BOTTLE NS SCH (09:46)
[2020-07-04] MEDS: ZOSYN IVPB 3.375 G in IV D5W 50ml IV SCH ×3 (09:46→21:12)
[2020-07-04] MEDS: HYDROCHLOROTHIAZIDE 25 MG TABLET PO SCH (09:46)
[2020-07-04] MEDS: PROPRANOLOL LA 60 MG CAP.SA.24H PO SCH (09:46)
[2020-07-04] MEDS: AMLODIPINE BESYLATE 10 MG TABLET PO SCH (09:46)
[2020-07-04] MEDS ORDERED: AMLODIPINE BESYLATE 5 MG TABLET ONE (10:09)
[2020-07-04] MEDS ORDERED: PIPERACILLIN /TAZOBACTAM 3.375 G VIAL IV ONE (10:09)
[2020-07-04] MEDS: ENSURE ENLIVE 237 ML LIQUID (VANILLA) PO SCH ×3 (10:30→18:00)
[2020-07-04] MEDS: PROSOURCE / PROSTAT (PYXIS) 30 ML UDC PO SCH ×2 (10:30→17:00)
[2020-07-04] MEDS: LEVOFLOXACIN 750 MG /D5W 150ML 150 ML IV SCH (11:25)
[2020-07-04] MEDS: IPRATROPIUM/ALBUTEROL INHALER IH SCH ×3 (11:26→19:46)
[2020-07-04] MEDS: VANCOMYCIN HCL 0.75 GM in IV D5W 250 ML IV SCH ×2 (12:37→23:48)
--- NOTE | 2020-07-04 13:35 | NUR ---
CAROLYN, PT'S SISTER UPDTAED REGARDING PT
--- NOTE | 2020-07-04 21:23 | NUR ---
RT pt found on hfnc, 60l 100%. having some sob. advised pt to lie prone. pt said he cannot lie completely on stomach, so pt is left lateral. pt states he is much more comfortable, breathing better. ed, charge, and sophia lieberman, notified.
--- NOTE | 2020-07-04 22:30 | NUR ---
PT NOTED W/ O2 SAT OF 80s ON HI FLOW. PT WAS PLACED ON NON REBREATHER MASK ON TOP OF HI FLOW TO INCREASE THE O2 SAT AND INSTRUCTED TO KEEP THE SUPPLEMENTAL O2s IN PLACE. PT REMAINED ON CONTINUOUS MONITORING .
[2020-07-04] MEDS ORDERED: HYDROCODONE/APAP 5/325MG TABLET ONE (22:32)
[2020-07-04] MEDS: HYDROCODONE/APAP 5/325MG TABLET PO PRN (22:36)
--- NOTE | 2020-07-04 22:36 | NUR ---
norco 5 gvien as order for c/o lower back pain and spasm .will cont to monitor ,
[2020-07-05] VITALS (11 sets, daily range): BP systolic 86–107; BP diastolic 38–76
--- NOTE | 2020-07-05 00:10 | NUR ---
PT VERY AGITATED AND NON COMPLIANT W/ KEEPING THE NON REBREATHER MASK IN PLACE. SPOKE TO THE PT AND ATTEMMPTED TO CALM HIM DOWN. LOPEZ YI ON THE FLOOR MADE AWARE W/ AN ORDER FOR SEROQUEL PO. WILL CONT TO MONITOR AND WILL ADMINISTER THE MEDICATION NEEDED.
[2020-07-05] MEDS ORDERED: QUETIAPINE FUMARATE 25 MG TABLET PO ONE (00:30)
[2020-07-05] MEDS ORDERED: methylPREDNISolone SOD SUCC 40 MG/ML VIAL ONE ×2 (00:53→06:06)
--- NOTE | 2020-07-05 00:54 | NUR ---
pt's low O2 sat, low BP and anxiety were relayed to Thao Lockett NP on the floor. sheet rock taper helper saw and assessed the pt at bed side w/ some new orders
[2020-07-05] MEDS: methylPREDNISolone SOD SUCC 40 MG/ML VIAL IV SCH ×4 (01:00→17:11)
[2020-07-05] MEDS: IPRATROPIUM/ALBUTEROL INHALER IH SCH ×3 (01:00→19:30)
--- NOTE | 2020-07-05 01:42 | NUR ---
called stat lab and radiology fro stat lab and CTA
[2020-07-05] MEDS ORDERED: CT SWABBABLE VALVE TRANS SET 1 EA INFUS.SET MC ONE (01:49)
[2020-07-05] MEDS ORDERED: IOHEXOL-350 100 ML VIAL IV ONE (01:49)
[2020-07-05] MEDS ORDERED: IV NS 0.9% 250 ML IV ONE (01:49)
[2020-07-05 02:12] LABS: BASOPHILS # (AUTO) 0.1 /CMM (0.0-0.2); BASOPHILS % (AUTO) 0.4 % (0.0-2.0); HEMATOCRIT 25 % (39-51); HEMOGLOBIN 7.2 g/dL (13.5-17.5); LYMPHOCYTES # (AUTO) 0.7 /CMM (0.8-4.8); LYMPHOCYTES % (AUTO) 4.4 % (20.0-44.0); MEAN CORPUSCULAR HGB CONC 29 g/dl (31.0-36.0); MEAN CORPUSCULAR VOLUME 89 fL (80-96); MONOCYTES # (AUTO) 1.2 /CMM (0.1-1.30); NEUTROPHILS # (AUTO) 13.3 /CMM (1.8-8.9); NEUTROPHILS % (AUTO) 87.2 % (43.0-81.0); PLATELET COUNT (AUTO) 60 /CMM (150-450); RED BLOOD CELL COUNT(AUTO) 2.84 MIL/uL (4.5-6.0); WHITE BLOOD COUNT (AUTO) 15.2 K/uL (4.3-11.0)
--- NOTE | 2020-07-05 02:15 | NUR ---
PT WAS TAKEN TO CTA WITH NON REBREATHER MASK AND ON MONITOR
[2020-07-05 02:22] LABS: ALBUMIN 1.5 g/dL (3.4-5.0); CALCIUM, SERUM 7.6 mg/dL (8.5-10.1); CREATININE 1.7 mg/dL (0.6-1.3); MAGNESIUM 2.5 mg/dL (1.8-2.4); PHOSPHORUS 3.9 mg/dL (2.5-4.9); POTASSIUM 4.1 mmol/L (3.5-5.1); TOTAL PROTEIN, SERUM 5.9 g/dL (6.4-8.2)
--- NOTE | 2020-07-05 02:23 | NUR ---
BACK FROM CT
--- NOTE | 2020-07-05 02:44 | NUR ---
REC'D CALL FROM DR. CRUZ, RADIOLOGIST, INFORMING OF BILATERAL PE AND POSSIBLE COVID PNEUMONIA. LOPEZ YI NP MADE AWARE
[2020-07-05] MEDS: ZOSYN IVPB 3.375 G in IV D5W 50ml IV SCH ×4 (03:07→21:15)
--- NOTE | 2020-07-05 03:08 | NUR ---
ANNE YI NP TO RELAY THE STAT LAB AND CTA RESULT. AWAITING FOR HER CALL BACK
--- NOTE | 2020-07-05 03:14 | NUR ---
SPOKE TO LOPEZ YI DNP REGARDING CT PULMONARY ANGIOGRAM RESULT.
[2020-07-05 03:57] LABS: BAND % (MANUAL) 2 % (0.0-5.0); LYMPHOCYTES % (MANUAL) 8 % (16-48); MONOCYTES % (MANUAL) 4 % (0-11.0); NEUTROPHILS % (MANUAL) 86 (42-76)
--- NOTE | 2020-07-05 05:53 | NUR ---
SPOKE TO ELIZA YI DNP REGARDING XARELTO 15MG PO AND DROPPED HGB 9.5 TO HGB 7.2, PLT-72 TO PLT-60. PER LOPEZ IY DNP HOLD DOSE UNTIL SHE SPEAKS TO DR. ORTIZ.
--- NOTE | 2020-07-05 07:20 | NUR ---
GAVE REPORT TO KENDALL PARRY FOR VINCE
[2020-07-05] MEDS: SUCRALFATE 1 G/10 ML UDC GT SCH ×4 (07:30→21:15)
[2020-07-05] MEDS: ENSURE ENLIVE 237 ML LIQUID (VANILLA) PO SCH ×3 (08:00→17:47)
--- NOTE | 2020-07-05 08:02 | NUR ---
pt in bed. awake, alert and oriented, on hi flow nasally @ 60 lpm 100% 02. pt care rendered
[2020-07-05] MEDS: FLUTICASONE PROPIONATE 16 GM BOTTLE NS SCH (08:30)
[2020-07-05] MEDS: risperiDONE 0.25 MG TABLET PO SCH ×2 (09:00→17:11)
[2020-07-05] MEDS ORDERED: RIVAROXABAN 15 MG TABLET PO SCH (09:00)
[2020-07-05] MEDS: PROPRANOLOL LA 60 MG CAP.SA.24H PO SCH (09:00)
[2020-07-05] MEDS: AMLODIPINE BESYLATE 10 MG TABLET PO SCH (09:00)
[2020-07-05] MEDS: HYDROCHLOROTHIAZIDE 25 MG TABLET PO SCH (09:00)
[2020-07-05] MEDS: LISINOPRIL (20MG) 20 MG TABLET PO SCH (09:00)
[2020-07-05] MEDS: PROSOURCE / PROSTAT (PYXIS) 30 ML UDC PO SCH ×2 (09:00→17:48)
[2020-07-05] MEDS ORDERED: SUCRALFATE 1 G/10 ML UDC ONE (09:13)
[2020-07-05] MEDS ORDERED: AMLODIPINE BESYLATE 5 MG TABLET ONE (09:13)
[2020-07-05] MEDS ORDERED: PANTOPRAZOLE 40 MG TABLET.DR PO ONE (09:13)
[2020-07-05] MEDS ORDERED: risperiDONE 1 MG TABLET ONE (09:13)
--- NOTE | 2020-07-05 10:06 | NUR ---
pt in on npo. no oral meds given as per order
[2020-07-05] MEDS: PANTOPRAZOLE 40 MG VIAL IV SCH ×2 (10:16→21:15)
[2020-07-05] MEDS: LEVOFLOXACIN 750 MG /D5W 150ML 150 ML IV SCH (10:43)
[2020-07-05] MEDS ORDERED: ANESTHESIA TRAY IN PYXIS 1 EA TRAY MC ONE (11:12)
[2020-07-05] MEDS ORDERED: IOHEXOL 240MG/ML 50 ML IV ONE (11:26)
[2020-07-05] MEDS ORDERED: LIDOCAINE HCL/MPF 1% 30 ML VIAL IJ ONE (11:26)
--- NOTE | 2020-07-05 11:40 | NUR ---
pt on the way up to surgery for ivc filter
[2020-07-05] MEDS: IV NS 0.9% 1,000 ML IV PRN (13:29)
--- NOTE | 2020-07-05 13:30 | NUR ---
RN INITIAL NOTES RECEIVED PT FROM OR, A/O X4. ON HIGH FLOW 02. HOB ELEVATED. DENIES ANY PAIN. SP IVC FILTER PLACEMENT. CONNECTED TO MONITOR. ORIENTED TO ROOM AND USE OF CALL LIGHT. PT COMFORTABLE. CALL LIGHT WITHIN REACH. WILL MONITOR
--- NOTE | 2020-07-05 18:51 | NUR ---
RN CLOSING NOTES NO SIGNIFICANT CHANGE NOTED. REMAINS ON HIGH FLOW. DENIES ANY PAIN. VS WNL. IVF INFUSING. KEPT COMFORTABLE. WILL ENDORSE FOR CONTINUITY OF CARE.
--- NOTE | 2020-07-05 20:00 | NUR ---
REGULATION SUPERVISOR OPENING NOTES: Rec'd pt in bed A&Ox4. On high flow 60LPM at 100%, tolerating well. No SOB or resp distress noted. ST on tele monitor. LAC #18 and LFA #20 patent and infusing NS at 100ml/hr. Safety measures in place. Will continue to monitor.
--- NOTE | 2020-07-05 22:46 | NUR ---
TOWEL SEWER NOTE: Pt refused bath and linen change at this time.
--- NOTE | 2020-07-05 23:24 | NUR ---
MECHANICAL EQUIPMENT TEST ENGINEER NOTE: Pt c/o SOB, O2 sat 87-88%. RT at bedside, placed pt on 15LPM nonrebreather mask. Tolerating well.
[2020-07-06] VITALS (42 sets, daily range): BP systolic 57–163; BP diastolic 28–103
[2020-07-06] MEDS: HYDROCODONE/APAP 5/325MG TABLET PO PRN (00:07)
[2020-07-06] MEDS: methylPREDNISolone SOD SUCC 40 MG/ML VIAL IV SCH ×3 (01:04→12:00)
[2020-07-06] MEDS: IPRATROPIUM/ALBUTEROL INHALER IH SCH ×4 (01:30→19:30)
[2020-07-06] MEDS: IV NS 0.9% 1,000 ML IV PRN (02:17)
--- NOTE | 2020-07-06 02:25 | NUR ---
SOFTWARE PROJECT ENGINEER NOTE: Pt keeps removing high flow and sat drops to 50s. Explained risks and benefits of high flow and importance of keeping it on. Pt agreed to keep it on. Will continue to monitor.
[2020-07-06] MEDS: ZOSYN IVPB 3.375 G in IV D5W 50ml IV SCH (03:10)
[2020-07-06 04:34] LABS: BASOPHILS # (AUTO) 0.1 /CMM (0.0-0.2); BASOPHILS % (AUTO) 1.1 % (0.0-2.0); HEMATOCRIT 23 % (39-51); LYMPHOCYTES # (AUTO) 0.4 /CMM (0.8-4.8); LYMPHOCYTES % (AUTO) 2.9 % (20.0-44.0); MEAN CORPUSCULAR HGB CONC 28 g/dl (31.0-36.0); MEAN CORPUSCULAR VOLUME 90 fL (80-96); MONOCYTES % (AUTO) 7.9 % (2.0-12.0); NEUTROPHILS % (AUTO) 88.1 % (43.0-81.0); PLATELET COUNT (AUTO) 70 /CMM (150-450); RED BLOOD CELL COUNT(AUTO) 2.55 MIL/uL (4.5-6.0); WHITE BLOOD COUNT (AUTO) 12.4 K/uL (4.3-11.0)
[2020-07-06 04:35] LABS: HEMOGLOBIN 6.5 g/dL (13.5-17.5)
[2020-07-06 04:46] LABS: ALBUMIN 1.5 g/dL (3.4-5.0); BILIRUBIN,TOTAL 1.8 mg/dL (0.2-1.0); CALCIUM, SERUM 7.8 mg/dL (8.5-10.1); CREATININE 1.5 mg/dL (0.6-1.3); MAGNESIUM 2.6 mg/dL (1.8-2.4); POTASSIUM 4.1 mmol/L (3.5-5.1); TOTAL PROTEIN, SERUM 5.7 g/dL (6.4-8.2)
[2020-07-06 05:13] LABS: LYMPHOCYTES % (MANUAL) 6 % (16-48); MONOCYTES % (MANUAL) 9 % (0-11.0); NEUTROPHILS % (MANUAL) 85 (42-76)
--- NOTE | 2020-07-06 06:30 | NUR ---
OPERATIONS ARCHITECT NOTE: Rec'd critical from lab H/H: 6.11/25 and platelets 70. 6207: Paged extrusion line operator, Thao who gave orders to transfuse 1 unit PRBC. Order noted
[2020-07-06] MEDS: SUCRALFATE 1 G/10 ML UDC GT SCH ×3 (07:30→21:06)
[2020-07-06] MEDS: ENSURE ENLIVE 237 ML LIQUID (VANILLA) PO SCH ×2 (08:00→12:00)
[2020-07-06] MEDS: PROPRANOLOL LA 60 MG CAP.SA.24H PO SCH (09:00)
[2020-07-06] MEDS: PROSOURCE / PROSTAT (PYXIS) 30 ML UDC PO SCH ×2 (09:00→17:00)
[2020-07-06] MEDS: PANTOPRAZOLE 40 MG VIAL IV SCH ×2 (09:00→21:06)
[2020-07-06] MEDS: AMLODIPINE BESYLATE 10 MG TABLET PO SCH (09:00)
[2020-07-06] MEDS: risperiDONE 0.25 MG TABLET PO SCH ×2 (09:00→17:00)
[2020-07-06 10:06] LABS: ABG BASE EXCESS -11.7 mmol/L; ABG OXYGEN SATURATION 80.8 % (92.0-98.5); ABG PCO2 21.5 mmHg (35.0-45.0); ABG PH 7.368 (7.350-7.450); ABG PO2 54.8 mmHg (75.0-100.0); AaDO2 636.7 mmHg; COHb 0.2 % (0.5-1.5); MetHb 0.1 % (0.0-1.5); O2Hb 80.6 % (94.0-97.0); SITE, ABG Right Femoral; VENT MODE, BG HFNC 60L 100% + NRB
[2020-07-06] MEDS: FLUTICASONE PROPIONATE 16 GM BOTTLE NS SCH (11:44)
--- NOTE | 2020-07-06 11:45 | NUR ---
AM PO MEDS NON-ADMIN. PT UNABLE TO TOLERATE TAKING MASK OFF, AND REFUSES TO TAKE PO MEDS. IV MEDS NON-ADMIN. PT BOTH IV SITE INFILTRATED. 3X IV ATTEMPTS TO INSERT NEW LINES UNSUCCESSFUL, MIDLINE ORDERED. BP MEDS WITHHELD DUE TO LOW BP SBP 90s.
--- NOTE | 2020-07-06 13:40 | NUR ---
PT ORALLY INTUBATED WITH 7.5 ET-TUBE SECURED AT 23CM. SETTINGS ORDERED ALARMS SET AND AUDIBLE. POSITIVE CO2 EXCHANGE DETECTED. B/S EQUAL. SMALL AMOUNTS OF WHITE SPUTUM. AMBU-BAG AT HEAD OF BED VENT. PLUGGED INTO RED OUTLET Addendum: 07/06/20 at 1412 by KIET JAY RT Amended: Links added.
[2020-07-06 13:44] LABS: C-REACTIVE PROTEIN 7.2 mg/dL (0.0-0.9)
--- NOTE | 2020-07-06 14:00 | NUR ---
PT OBSERVED LYING ON THE FLOOR. PT STATED HE WENT DOWN TO THE FLOOR TO REACH HIS BELONGINGS BAG. MD ORTIZ NOTIFIED. PT RETURNED TO BED, NO APPARENT INJURIES FROM EVENT. Addendum: 07/06/20 at 2127 by MARITZA SORENSON RN EVENT OCCURRED AT 1300
[2020-07-06] MEDS: PROPOFOL 100 ML IV PRN ×2 (15:22→23:11)
[2020-07-06 15:57] LABS: ABG BASE EXCESS -20.5 mmol/L; ABG OXYGEN SATURATION 96.1 % (92.0-98.5); ABG PCO2 52.3 mmHg (35.0-45.0); ABG PH 6.931 (7.350-7.450); ABG PO2 139.3 mmHg (75.0-100.0); AaDO2 521.4 mmHg; COHb 0.6 % (0.5-1.5); MetHb 0.4 % (0.0-1.5); O2Hb 95.1 % (94.0-97.0); PEEP,BG 8 cm H2O; SITE, ABG Right Radial; VT, ABG 450 mL
[2020-07-06] MEDS ORDERED: Sodium Bicarbonate 150 MEQ in IV D5W 1,000 ML IV PRN (16:30)
[2020-07-06] MEDS ORDERED: ZOSYN IVPB 3.375 G in IV D5W 50ml IV SCH (18:00)
[2020-07-06] MEDS ORDERED: VANCOMYCIN 1 GM in IV D5W 250 ML IV SCH ×3 (18:00)
[2020-07-06] MEDS: NOREPINEPHRINE 8 MG in IV NS 0.9% 242 ML IV PRN ×3 (19:17→23:42)
--- NOTE | 2020-07-06 19:28 | NUR ---
DENTAL INSURANCE BILLER OPENING NOTES: Rec'd pt in bed, intubated 7/23cm at the lip and sedated. Tolerating vent settings well. No SOB or resp distress noted. SR on tele monitor. JACEK mid in place infusing Diprivan at 25mcg/kg/min and Levo at 0.5mcg. Will titrate per protocol. Stokes catheter in place, draining urine via gravity. Safety measures in place.
[2020-07-06 20:03] LABS: BILIRUBIN,URINE NEGATIVE (NEGATIVE); COLOR,URINE YELLOW (YELLOW); LEUKOCYTE ESTERASE ,URINE NEGATIVE (NEGATIVE); NITRITE, URINE NEGATIVE (NEGATIVE); PROTEIN,URINE TRACE mg/dl (NEGATIVE); UGLUCOSE NEGATIVE (NEGATIVE)
[2020-07-06 20:07] LABS: ABG BASE EXCESS -21.1 mmol/L; ABG PCO2 41.6 mmHg (35.0-45.0); ABG PH 6.971 (7.350-7.450); AaDO2 588.4 mmHg; COHb 1.3 % (0.5-1.5); MetHb 0.2 % (0.0-1.5); O2Hb 84.7 % (94.0-97.0); PEEP,BG 8 cm H2O; SITE, ABG Right Radial; VT, ABG 500 mL
--- NOTE | 2020-07-06 20:21 | NUR ---
OPERATIONS PROJECT MANAGER NOTE: Relayed ABG results to parlor chaperone JENNY Lockett at this time.
[2020-07-06 20:23] LABS: BACTERIA,URINE 1+ /HPF (None Seen); SQUAMOUS EPITHELIAL CELL,UR 0-2 /HPF (None Seen); WBC,URINE 0-2 /HPF (0-3)
[2020-07-06 20:24] LABS: FINE GRANULAR CASTS,URINE Few /LPF (None Seen); HYALINE CASTS, URINE RARE /LPF (None Seen); URINE AMORPHOUS URATE Few /HPF (None Seen)
[2020-07-06] MEDS ORDERED: Sodium Bicarbonate 100 MEQ in IV NS 0.9% 1,000 ML IV PRN (20:30)
[2020-07-06] MEDS ORDERED: SODIUM BICARBONATE SYR 50 MEQ/50 ML DISP.SYRIN IV ONE (20:30)
--- NOTE | 2020-07-06 20:47 | NUR ---
LUDLOW MACHINE OPERATOR NOTE: Inserted OGT and verified placement w/ charge nurse Ed.
[2020-07-06 21:04] LABS: EOSINOPHIL,URINE None Seen
[2020-07-06 21:32] LABS: CREATININE, URINE 80.9 MG/DL (30.0-125.0); URINE TOTAL PROTEIN 105.3 mg/dL (0-11.9)
[2020-07-06] MEDS ORDERED: NOREPINEPHRINE 8MG/250ML RTU 250 ML IV ONE (21:33)
--- NOTE | 2020-07-06 22:00 | NUR ---
JAPANESE TUTOR NOTE: Pt maxed out on Levophed drip. Paged oncology rn Thao Lockett and asked for second pressor as pt's BP not trending in right direction. Rec'd orders to start [place]. Order noted and carried out.
--- NOTE | 2020-07-06 22:34 | NUR ---
CNC GRINDER NOTE: Charge nurse Ed inserted IV site in left IJ #[id number].
[2020-07-06] MEDS ORDERED: PHENYLEPHRINE 100 MG in IV NS 0.9% 240 ML IV PRN (23:00)
[2020-07-06 23:06] LABS: ALANINE AMINOTRANSFERASE 423 U/L (12-78); ALBUMIN 1.6 g/dL (3.4-5.0); ALKALINE PHOSPHATASE 105 U/L (46-116); ASPARTATE AMINOTRANSFERASE 953 U/L (15-37); BILIRUBIN,TOTAL 3.4 mg/dL (0.2-1.0); CALCIUM, SERUM 7.8 mg/dL (8.5-10.1); CARBON DIOXIDE 14 mmol/L (21-32); CHLORIDE 110 mmol/L (98-107); CREATININE 2.6 mg/dL (0.6-1.3); GLUCOSE 101 mg/dL (74-106); SODIUM SERUM 143 mmol/L (136-145); TOTAL PROTEIN, SERUM 6.2 g/dL (6.4-8.2); UREA NITROGEN, BLOOD 76 mg/dL (7-18)
[2020-07-06 23:11] LABS: POTASSIUM 7.4 mmol/L (3.5-5.1)
[2020-07-06] MEDS ORDERED: PHENYLEPHRINE 10 MG/ML VIAL ONE (23:14)
[2020-07-06] MEDS ORDERED: NOREPINEPHRINE 4 MG/4 ML AMPUL IV ONE (23:15)
[2020-07-06 23:27] LABS: BASOPHILS # (AUTO) 0.1 /CMM (0.0-0.2); BASOPHILS % (AUTO) 0.3 % (0.0-2.0); HEMATOCRIT 28 % (39-51); LYMPHOCYTES # (AUTO) 0.8 /CMM (0.8-4.8); LYMPHOCYTES % (AUTO) 2.9 % (20.0-44.0); MEAN CORPUSCULAR HGB CONC 25 g/dl (31.0-36.0); MEAN CORPUSCULAR VOLUME 102 fL (80-96); MONOCYTES # (AUTO) 3.4 /CMM (0.1-1.30); MONOCYTES % (AUTO) 11.8 % (2.0-12.0); NEUTROPHILS # (AUTO) 24.1 /CMM (1.8-8.9); PLATELET COUNT (AUTO) 126 /CMM (150-450); RED BLOOD CELL COUNT(AUTO) 2.75 MIL/uL (4.5-6.0); WHITE BLOOD COUNT (AUTO) 28.4 K/uL (4.3-11.0)
[2020-07-06] MEDS ORDERED: IV NS 0.9% 1,000 ML IV ONE (23:30)
[2020-07-06] MEDS ORDERED: Calcium Gluconate 1GM/10ML 4.65 MEQ in IV D5W 50 ML IV ONE (23:30)
--- NOTE | 2020-07-06 23:50 | NUR ---
MARKETING RECRUITER NOTE: Thao Lockett on floor, speaking w/ family. Family agreed to make pt comfort measure.
[2020-07-07] VITALS: BP 73/65
[2020-07-07] MEDS ORDERED: NOREPINEPHRINE 32 MG in IV NS 0.9% 218 ML IV PRN ×2
[2020-07-07] MEDS ORDERED: LORAZEPAM INJ 2 MG/ML VIAL IV ONE (00:30)
[2020-07-07] MEDS ORDERED: MORPHINE SULFATE INJ 4 MG/ML DISP.SYRIN IV ONE (00:30)
--- NOTE | 2020-07-07 00:30 | NUR ---
SERVER SYSTEMS ADMINISTRATOR NOTE: 0023, Pt . Charge nurse Ed pronounced TOFrancesca. Thao Lockett aware. Family aware.
[2020-07-07 00:39] LABS: ALBUMIN 1.6 g/dL (3.4-5.0); BILIRUBIN,TOTAL 3.5 mg/dL (0.2-1.0); CREATININE 2.5 mg/dL (0.6-1.3); TOTAL PROTEIN, SERUM 6.2 g/dL (6.4-8.2)
[2020-07-07 00:47] LABS: POTASSIUM 7.5 mmol/L (3.5-5.1)
[2020-07-07 01:05] LABS: BAND % (MANUAL) 6 % (0.0-5.0); LYMPHOCYTES % (MANUAL) 4 % (16-48); METAMYELOCYTES % 1 % (0-0); MONOCYTES % (MANUAL) 3 % (0-11.0); MYELOCYTES % 2 % (0-0); NEUTROPHILS % (MANUAL) 84 (42-76)
[2020-07-10 13:11] LABS: *SPE A/G RATIO 0.5 (0.7-1.7); *SPE ALBUMIN 1.8 g/dL (2.9-4.4); *SPE ALPHA-1-GLOBULIN 0.3 g/dL (0.0-0.4); *SPE ALPHA-2-GLOBULIN 0.5 g/dL (0.4-1.0); *SPE BETA GLOBULIN 1.1 g/dL (0.7-1.3); *SPE GLOBULIN, TOTAL 3.7 g/dL (2.2-3.9); *SPE M-SPIKE 0.1 g/dL (Not Observed); *SPEGAMMA GLOBULIN 1.8 g/dL (0.4-1.8)
== END 2020-07-07 00:23 | disposition expired | DRG 871 ==
LOC: ER 21:15 → TRANSITION 07-04 01:56 → ICU 07-05 13:21
PROVIDERS: ADMIT Nurse Practitioner Acute Care; ATTEND Nurse Practitioner Acute Care
PROC: 30233N1 Transfusion of Nonautologous Red Blood Cells into Peripheral Vein, Percutaneous Approach (ICD-10-PCS; 2020-07-05)
PROC: 06H03DZ Insertion of Intraluminal Device into Inferior Vena Cava, Percutaneous Approach (ICD-10-PCS; 2020-07-05)
PROC: 5A1935Z Respiratory Ventilation, Less than 24 Consecutive Hours (ICD-10-PCS; principal; 2020-07-06)
PROC: 0BH17EZ Insertion of Endotracheal Airway into Trachea, Via Natural or Artificial Opening (ICD-10-PCS; 2020-07-06)
PROC: 05HB33Z Insertion of Infusion Device into Right Basilic Vein, Percutaneous Approach (ICD-10-PCS; 2020-07-06)
DX: A41.89 Other specified sepsis (principal); U07.1 COVID-19; J15.6 Pneumonia due to other Gram-negative bacteria; J96.01 Acute respiratory failure with hypoxia; E43 Unspecified severe protein-calorie malnutrition; J12.89 Other viral pneumonia; I26.99 Other pulmonary embolism without acute cor pulmonale; N17.0 Acute kidney failure with tubular necrosis; K76.7 Hepatorenal syndrome; N00.9 Acute nephritic syndrome with unspecified morphologic changes; R65.21 Severe sepsis with septic shock; J44.0 Chronic obstructive pulmonary disease with (acute) lower respiratory infection; J44.1 Chronic obstructive pulmonary disease with (acute) exacerbation; K76.6 Portal hypertension; D68.9 Coagulation defect, unspecified; E87.2 Acidosis; I82.432 Acute embolism and thrombosis of left popliteal vein; I82.441 Acute embolism and thrombosis of right tibial vein; Z51.5 Encounter for palliative care; Z66 Do not resuscitate; K29.70 Gastritis, unspecified, without bleeding; D64.9 Anemia, unspecified; D69.59 Other secondary thrombocytopenia; I10 Essential (primary) hypertension; E78.5 Hyperlipidemia, unspecified; F17.200 Nicotine dependence, unspecified, uncomplicated; Z79.899 Other long term (current) drug therapy; J45.909 Unspecified asthma, uncomplicated; M48.061 Spinal stenosis, lumbar region without neurogenic claudication; K22.70 Barrett's esophagus without dysplasia; Z79.51 Long term (current) use of inhaled steroids; D69.6 Thrombocytopenia, unspecified; N14.1 Nephropathy induced by other drugs, medicaments and biological substances; T50.8X5A Adverse effect of diagnostic agents, initial encounter; Y92.9 Unspecified place or not applicable; F10.11 Alcohol abuse, in remission; Y90.9 Presence of alcohol in blood, level not specified; K40.20 Bilateral inguinal hernia, without obstruction or gangrene, not specified as recurrent; K70.31 Alcoholic cirrhosis of liver with ascites
CPT/HCPCS: 36410; 36415; 36600; 71045-TC; 80048-TC; 80053-TC; 80061-TC; 80076-TC; 80202-TC; 81001; 82550-TC; 82570-TC; 82803-TC; 83605-TC; 83615-TC; 83735-TC; 83880; 83970; 84100-TC; 84155; 84155-TC; 84165; 84300-TC; 84484-TC; 85025-TC; 85378-TC; 85730-TC; 86140-TC; 86850-TC; 87040-TC; 87081-TC; 93970-TC; 94002-TC; 94799-TC; 99082-TC; A4217; C1751; C1769; C1880; C9113; C9803; G0378; J1644; J1956; J2060; J2270; J2370; J2543; J2920; J2930; J3370; J3490; J7030; J7040; J7050; J7060; J7070; P9016-BL; Q9966; Q9967; U0003